=== PATIENT | male | born 1955 | race Caucasian/White ===

== ENCOUNTER 2017-08-04 16:22 | Observation (INO) | payer OTHER ==
[2017-08-04] MEDS ORDERED: Albuterol/Ipratropium NEB.SOL* Albuterol 2.5 MG/Ipratropium 0.5 MG 3 ML ONE (16:28)
[2017-08-04] MEDS ORDERED: Albuterol/Ipratropium NEB.SOL* Albuterol 2.5 MG/Ipratropium 0.5 MG 3 ML INH ONE (16:28)
[2017-08-04] MEDS ORDERED: methylPREDNISolone 125 MG* 2 ML VIAL IV ONE (16:34)
[2017-08-04] MEDS ORDERED: Azithromycin IV(*) 500 MG in NS 0.9% 250 ML* 250 ML IVPB ONE (16:34)
[2017-08-04] MEDS ORDERED: cefTRIAXone(*) 1 GM in NS 0.9% 50 ML* 50 ML IVPB ONE (16:34)
--- NOTE | 2017-08-04 16:59 | RAD ---
INDICATION: Short of breath COMPARISON: Chest x-ray March 06, 2004 TECHNIQUE: An AP portable view obtained at 1638 hours is submitted. FINDINGS: Bones/Soft Tissues: There are no acute bony findings. Cardiomediastinal: The cardiomediastinal silhouette is normal. Lungs: There are no infiltrates. Pleura: There are no pleural effusions. Other: None IMPRESSION: NO ACTIVE DISEASE.
[2017-08-04 17:06] LABS: Hematocrit 46 % (42-52); Hemoglobin 16.1 g/dl (14.0-18.0); Mean Corpuscular HGB Conc 35 g/dl (31-36); Mean Corpuscular Hemoglobin 35 pg (27-31); Mean Corpuscular Volume 101 fL (80-94); Mean Platelet Volume 8 um3 (7.4-10.4); Red Blood Count 4.58 10^6/ul (4.0-5.4); Red Cell Distribution Width 14 % (10.5-15)
[2017-08-04 17:24] LABS: Albumin 4.4 g/dL (3.2-5.2); BUN/Creatinine Ratio 7.2 (8-20); C Reactive Protein 12.81 mg/L (< 5.00); Calcium 9.4 mg/dL (8.6-10.3); EGFR African American 149.9 (>60); EGFR Non-African American 116.6 (>60); Globulin 3.2 g/dL (2-4); Magnesium 2.1 mg/dL (1.9-2.7); Total Bilirubin 0.3 mg/dL (0.2-1.0); Total Protein 7.6 g/dL (6.4-8.9)
[2017-08-04 17:37] LABS: Venous Bicarbonate HCO3 20.7 mmol/L (24-28)
--- NOTE | 2017-08-04 18:50 | ED ---
Ben [place] Benjamin, scribed for Jaylan Payne MD on 08/04/17 at 1635 . Shortness of Breath - HPI Summary HPI Summary: 62yo male c/o SOB for 4-5 days. Pt also reports fever/chills, productive cough, and difficulty eating and sleeping due to SOB. Pt also has baseline wheezes. Multiple ortho surgical hx in both legs and states frequent hx of sinus infections. - History of Current Complaint Chief Complaint: EDShortnessOfBreath Time Seen by Provider: 08/04/17 16:26 Hx Obtained From: Patient Onset/Duration: Sudden Onset, Lasting Days - 4-5 days ago, Still Present Timing: Constant Current Severity: Moderate Dyspnea At: Rest Aggrevating Factors: Nothing Alleviating Factors: EMS Tx, Oxygen Associated Signs & Symptoms: Cough (Productive), Wheezing, Fever, Chills - Allergy/Home Medications Allergies/Adverse Reactions: Allergies Allergy/AdvReac Type Severity Reaction Status Date / Time Black [place] trees* Allergy Severe Swelling Uncoded 08/08/12 10:17 PMH/Surg Hx/FS Hx/Imm Hx Endocrine/Hematology History: Denies: Hx Diabetes, Hx Thyroid Disease Cardiovascular History: Denies: Hx Hypertension Respiratory History: Denies: Hx Asthma, Hx Chronic Obstructive Pulmonary Disease (COPD) GI History: Denies: Hx Ulcer - Surgical History Surgery Procedure, Year, and Place: Multiple leg surgeries Infectious Disease History: Denies: Hx Hepatitis, Hx Human Immunodeficiency Virus (HIV) - Family History Known Family History: Positive: Cardiac Disease, Hypertension - Social History Occupation: Retired Substance Use Type: Reports: None Review of Systems Positive: Fever, Chills Eyes: Negative ENT: Negative Cardiovascular: Negative Positive: Shortness Of Breath, Cough Gastrointestinal: Negative Genitourinary: Negative Musculoskeletal: Negative Skin: Negative Neurological: Negative Psychological: Normal All Other Systems Reviewed And Are Negative: Yes Physical Exam Triage Information Reviewed: Yes Vital Signs On Initial Exam: Initial Vitals Temp Pulse Resp BP Pulse Ox 98.2 F 109 16 115/76 99 08/04/17 16:24 08/04/17 16:24 08/04/17 16:24 08/04/17 16:24 08/04/17 16:24 Vital Signs Reviewed: Yes Appearance: Positive: Well-Appearing, Well-Nourished, Pain Distress - moderate respiratory distress Skin: Positive: Warm, Skin Color Reflects Adequate Perfusion, Dry Head/Face: Positive: Normal Head/Face Inspection Eyes: Positive: Normal ENT: Positive: Normal ENT inspection, Hearing grossly normal Neck: Positive: Supple, Nontender Respiratory/Lung Sounds: Positive: Decreased Breath Sounds, Wheezes - bilateral wheezes Cardiovascular: Positive: RRR, Pulses are Symmetrical in both Upper and Lower Extremities Abdomen Description: Positive: Nontender, Soft Bowel Sounds: Positive: Present Musculoskeletal: Positive: Strength/ROM Intact. Negative: Edema Left, Edema Right Neurological: Positive: Sensory/Motor Intact, Alert, Oriented to Person Place, Time Psychiatric: Positive: Affect/Mood Appropriate Diagnostics - Vital Signs Vital Signs Temp Pulse Resp BP Pulse Ox 08/04/17 18:00 117 19 120/70 94 08/04/17 17:45 118 14 108/41 93 08/04/17 17:30 120 23 92/77 93 08/04/17 17:15 116 15 99/56 94 08/04/17 17:00 120 21 100/66 94 08/04/17 16:38 114 20 97 08/04/17 16:35 127/74 08/04/17 16:30 112 17 100 08/04/17 16:24 98.2 F 109 16 115/76 99 - Laboratory Lab Results: Lab Results 08/04/17 08/04/17 08/04/17 Range/Units 16:52 16:52 16:52 WBC 5.0 (3.5-10.8) 10^3/ul RBC 4.58 (4.0-5.4) 10^6/ul Hgb 16.1 (14.0-18.0) g/dl Hct 46 (42-52) % MCV 101 H (80-94) fL MCH 35 H (27-31) pg MCHC 35 (31-36) g/dl RDW 14 (10.5-15) % Plt Count 211 (150-450) 10^3/ul MPV 8 (7.4-10.4) um3 Neut % (Auto) 42.3 (38-83) % Lymph % (Auto) 39.9 (25-47) % [place] % (Auto) 16.2 H (1-9) % Eos % (Auto) 0.5 (0-6) % Baso % (Auto) 1.1 (0-2) % Absolute Neuts (auto) 2.1 (1.5-7.7) 10^3/ul Absolute Lymphs (auto) 2.0 (1.0-4.8) 10^3/ul Absolute Monos (auto) 0.8 (0-0.8) 10^3/ul Absolute Eos (auto) 0 (0-0.6) 10^3/ul Absolute Basos (auto) 0.1 (0-0.2) 10^3/ul Absolute Nucleated RBC 0 10^3/ul Nucleated RBC % 0 INR (Anticoag Therapy) (0.89-1.11) D-Dimer, Quantitative (Less Than 230) ng/mL VBG pH (7.33-7.43) VBG pCO2 (41-51) mmHg VBG pO2 (35-45) mmHg VBG HCO3 (24-28) mmol/L VBG O2 Saturation (70-80) % VBG Base Excess (0-4) Sodium 131 L (133-145) mmol/L Potassium 3.0 L (3.5-5.0) mmol/L Chloride 94 L (101-111) mmol/L Carbon Dioxide 21 L (22-32) mmol/L Anion Gap 16 H (2-11) mmol/L BUN 5 L (6-24) mg/dL Creatinine 0.69 (0.67-1.17) mg/dL Est GFR ( Amer) 149.9 (>60) Est GFR (Non-Af Amer) 116.6 (>60) BUN/Creatinine Ratio 7.2 L (8-20) Glucose 115 H (70-100) mg/dL Lactic Acid 8.1 H* (0.5-2.0) mmol/L Calcium 9.4 (8.6-10.3) mg/dL Magnesium 2.1 (1.9-2.7) mg/dL Total Bilirubin 0.30 (0.2-1.0) mg/dL AST 41 H (13-39) U/L ALT 21 (7-52) U/L Alkaline Phosphatase 62 (34-104) U/L Total Creatine Kinase 70 (10-223) U/L CK-MB (CK-2) 3.8 (0.6-6.3) ng/mL Troponin I 0.00 (<0.04) ng/mL C-Reactive Protein 12.81 H (< 5.00) mg/L B-Natriuretic Peptide ( - 100) pg/mL Total Protein 7.6 (6.4-8.9) g/dL Albumin 4.4 (3.2-5.2) g/dL Globulin 3.2 (2-4) g/dL Albumin/Globulin Ratio 1.4 (1-3) 08/04/17 08/04/17 08/04/17 Range/Units 16:52 16:52 17:30 WBC (3.5-10.8) 10^3/ul RBC (4.0-5.4) 10^6/ul Hgb (14.0-18.0) g/dl Hct (42-52) % MCV (80-94) fL MCH (27-31) pg MCHC (31-36) g/dl RDW (10.5-15) % Plt Count (150-450) 10^3/ul MPV (7.4-10.4) um3 Neut % (Auto) (38-83) % Lymph % (Auto) (25-47) % [place] % (Auto) (1-9) % Eos % (Auto) (0-6) % Baso % (Auto) (0-2) % Absolute Neuts (auto) (1.5-7.7) 10^3/ul Absolute Lymphs (auto) (1.0-4.8) 10^3/ul Absolute Monos (auto) (0-0.8) 10^3/ul Absolute Eos (auto) (0-0.6) 10^3/ul Absolute Basos (auto) (0-0.2) 10^3/ul Absolute Nucleated RBC 10^3/ul Nucleated RBC % INR (Anticoag Therapy) 0.88 L (0.89-1.11) D-Dimer, Quantitative < 200 (Less Than 230) ng/mL VBG pH 7.39 (7.33-7.43) VBG pCO2 31 L (41-51) mmHg VBG pO2 49 H (35-45) mmHg VBG HCO3 20.7 L (24-28) mmol/L VBG O2 Saturation 88.4 H (70-80) % VBG Base Excess -4.9 L (0-4) Sodium (133-145) mmol/L Potassium (3.5-5.0) mmol/L Chloride (101-111) mmol/L Carbon Dioxide (22-32) mmol/L Anion Gap (2-11) mmol/L BUN (6-24) mg/dL Creatinine (0.67-1.17) mg/dL Est GFR ( Amer) (>60) Est GFR (Non-Af Amer) (>60) BUN/Creatinine Ratio (8-20) Glucose (70-100) mg/dL Lactic Acid (0.5-2.0) mmol/L Calcium (8.6-10.3) mg/dL Magnesium (1.9-2.7) mg/dL Total Bilirubin (0.2-1.0) mg/dL AST (13-39) U/L ALT (7-52) U/L Alkaline Phosphatase (34-104) U/L Total Creatine Kinase (10-223) U/L CK-MB (CK-2) (0.6-6.3) ng/mL Troponin I (<0.04) ng/mL C-Reactive Protein (< 5.00) mg/L B-Natriuretic Peptide 29 ( - 100) pg/mL Total Protein (6.4-8.9) g/dL Albumin (3.2-5.2) g/dL Globulin (2-4) g/dL Albumin/Globulin Ratio (1-3) Result Diagrams: 08/04/17 16:52 08/04/17 16:52 Lab Statement: Any lab studies that have been ordered have been reviewed, and results considered in the medical decision making process. - Radiology CXR Xray Interpretation: No Acute Changes Radiology Interpretation Completed By: Radiologist - ED physician has reviewed this radiology report and agrees. - EKG 1634. Cardiac Rate: Tachycardia - 112bpm EKG Rhythm: Sinus Tachycardia Ectopy: None EKG Interpretation: Flat ST in V1 and V2 Course/Dx - Course Course Of Treatment: Reviewed pts medication and allergy lists. Blood pressure noted. Consulted Dr. Linda (Hospitalist) at 1826 hour regarding pt's case. ADMIT HOSPITALIST. CRITICAL CARE TIME LESS THAN 30 MINUTES. - Diagnoses Provider Diagnoses: COPD (chronic obstructive pulmonary disease) Discharge - Discharge Plan Condition: Stable Disposition: ADMITTED TO [facility] Referrals: Jose Mack MD [Primary Care Provider] - The documentation as recorded by the Ben bangura Benjamin accurately reflects the service I personally performed and the decisions made by me, Jaylan Payne MD.
[2017-08-04] MEDS ORDERED: Albuterol/Ipratropium NEB.SOL* Albuterol 2.5 MG/Ipratropium 0.5 MG 3 ML INH PRN (20:10)
[2017-08-04] MEDS ORDERED: Acetaminophen TAB* 325 MG PO PRN (20:11)
[2017-08-04] MEDS ORDERED: PROCHLORPERAZINE INJ 5 MG/ML 2 ML VIAL IV PRN (20:11)
[2017-08-04] MEDS ORDERED: Thiamine IV 100 MG, Folic Acid IV* 1 MG, Multiple Vitamin IV ADULT* 10 ML in NS 0.9% 10... IV ONE ×2 (20:13→23:45)
[2017-08-04] MEDS ORDERED: Nicotine Inhaler* 10 MG AMP INH PRN (20:17)
[2017-08-04] MEDS ORDERED: Nicotine GUM* 2 MG PO PRN (20:17)
[2017-08-04] MEDS ORDERED: LORazepam TAB(*) 1 MG PO SCH (21:00)
[2017-08-04] MEDS: KCL 10 MEQ/50 ML IVPREMIX* 10 MEQ/50 ML BAG IV SCH ×2 (22:27→23:44)
[2017-08-04] MEDS: Omeprazole CAP* 20 MG PO SCH (22:28)
[2017-08-04] MEDS: Heparin VIAL(*) 5000 UNITS/ML VIAL (FIVE THOUSAND) SUBCUT SCH (22:28)
--- NOTE | 2017-08-05 00:28 | HP ---
CC: Layne Do NP at the [facility] MEDICINE HISTORY AND PHYSICAL: DATE OF ADMISSION: 08/04/17 PRIMARY CARE PHYSICIAN: Layne Do NP at the [place]. ATTENDING PHYSICIAN: Ibrahima Gordon MD* (dictation provided by Hyun Valdes NP). CHIEF COMPLAINT: Shortness of breath. HISTORY OF PRESENT ILLNESS: Mr. Turcios is a 62-year-old male with a past medical history of COPD and hypertension and continued smoking who presents to the hospital today with concern for severe shortness of breath. Mr. Turcios states that his shortness of breath started about a week ago. He said it was quite severe over the weekend. He reports significant cough. He continues to smoke about 1 to 2 packs of cigarettes per day. He states he was able to quit, but he started smoking again when his son about 4 months ago. He denies any chest pain. He has chronic persistent nausea and has a very difficult time tolerating oral intake. He states that he has had this problem since he was a child. He reports vomiting practically anytime he eats something. He was supposed to be scheduled for an endoscopy both upper and lower, but he cancelled it because he was not feeling well and he did not have any transportation. He does confirm drinking on a daily basis and states that he drinks vodka with grapefruit juice throughout the entire day. He denies any history of alcohol withdrawal seizures. On the way to the emergency room, Mr. Turcios was described to be quite short of breath. He was given Decadron and albuterol on arrival here. He was tripoding and very short of breath and was given Solu-Medrol with good effect as well as DuoNeb nebulizer. His labs showed no leukocytosis. He had a lactic acidosis to 8.1. His CRP is 12.81. His EKG shows no evidence of ischemia. His chest x- ray shows no evidence of acute cardiopulmonary process. PAST MEDICAL HISTORY: 1. COPD. 2. Hypertension, not on home meds. MEDICATIONS: None. ALLERGIES: BLACK [place] TREES. FAMILY HISTORY: The patient reports his mom related to cancer. Dad as a result of diabetes. SOCIAL HISTORY: The patient is a continued 1 to 2 pack a day smoker. He drinks alcohol all day, every day. He denies any drug use. He lives with his daughter-in- law and son. His son will be the healthcare proxy. REVIEW OF SYSTEMS: A 14-point review of systems was completed with Mr. Turcios and all those not mentioned above were negative. PHYSICAL EXAMINATION GENERAL: Mr. Glen Turcios is sitting up in the bed. He is in no acute distress. VITAL SIGNS: Temperature 98.2, heart rate 99, respiratory rate 19, O2 saturation 95% on room air, and blood pressure 126/72. LUNGS: The patient is diminished bilaterally with wheezing noted anytime he coughs. There is no accessory muscle use. The patient is able to speak in complete sentences. HEART: S1 and S2. No murmur, rub, or gallop and regular. ABDOMEN: Soft, nontender with bowel sounds positive x4. EXTREMITIES: No cyanosis or edema. NEUROLOGIC: He is alert, he is oriented x3. He moves all extremities equally. There is no facial asymmetry or focal weakness. Extraocular movements are intact. SKIN: Intact. LABORATORY DATA/DIAGNOSTIC STUDIES: Sodium 131, potassium 3.0, chloride 94, serum bicarbonate 21, BUN 5, creatinine 0.69, glucose 115. Lactic acid 8.1 on arrival, on followup it was 5.6. CRP 12.81. WBC 5.0, hemoglobin 16.1, hematocrit 46, platelet count 211,000. INR 0.88. D-dimer less than 200. Venous blood gas shows pH of 7.39, pCO2 of 31, pO2 of 49, bicarbonate 20.7. EKG shows sinus tachycardia with the heart rate about 112. No evidence of ischemia. Chest x-ray shows no acute cardiopulmonary process. ASSESSMENT AND PLAN: Mr. Turcios is a 62-year-old male with a past medical history of chronic obstructive pulmonary disease and continued smoking, as well as hypertension not on any medications and alcoholism, who presents today to the hospital with concern for shortness of breath. Our plans are for inpatient admission as I expect the length of stay to be greater than 2 days for the followin. Chronic obstructive pulmonary disease exacerbation: The patient has no evidence of pulmonary embolism as his D-dimer is negative. He has normal troponin. I suspect that his symptoms all stem from chronic obstructive pulmonary disease and persistent smoking. He has improved dramatically with Solu-Medrol and Decadron. Plan to continue with prednisone and azithromycin orally. I would like to switch to oral at this point, as the patient has indicated that he has trouble tolerating oral intake and meds, and I want to see that he is able to tolerate those 2 medications before he is discharged. He will have oxygen available and DuoNeb nebulizers prn. I have also added Advair. 2. Alcoholism: The patient will be on [facility] protocol with multivitamin, folate, thiamine and Ativan p.r.n. 3. Hypertension. The patient states he has a history of hypertension, but states that he discontinued medication, his blood pressure is running 100 to 120 systolically. We can add medications as clinically indicated. 4. Lactic acidosis: I suspect this is due to his severe shortness of breath. I see no evidence of infection or sepsis. 5. Code status is full code. 6. Nausea and vomiting: The patient states this is a chronic issue. We will have to assess if he is able to tolerate medications. His PCP had arranged for him to followup outpatient for endoscopy and I recommend that he continue to do that. I have started omeprazole b.i.d. as I suspect a lot of his issue must be related to chronic alcoholism and gastritis. TIME SPENT: Approximately 60 minutes were spent on the admission of this patient, more than half the time spent with the patient at the bedside reviewing the events leading up to this hospitalization, performing the physical examination, and reviewing my plan of care. HYUN VALDES NP [id number]/[facility] #: [id number] DINA
[2017-08-05] MEDS ORDERED: Thiamine IV* 100 MG/ML 2 ML VIAL IM ONE (00:33)
[2017-08-05] MEDS: KCL 10 MEQ/50 ML IVPREMIX* 10 MEQ/50 ML BAG IV SCH (00:59)
[2017-08-05] MEDS: Mometasone/Formoter 100/5 MDI INH SCH ×2 (04:14→10:16)
[2017-08-05] MEDS: Heparin VIAL(*) 5000 UNITS/ML VIAL (FIVE THOUSAND) SUBCUT SCH (06:09)
[2017-08-05 07:13] LABS: Calcium 9.6 mg/dL (8.6-10.3); EGFR African American 155.1 (>60); EGFR Non-African American 120.6 (>60); Potassium 4.2 mmol/L (3.5-5.0)
[2017-08-05] MEDS ORDERED: Nicotine PATCH 21 MG/24 HR* PATCH TRANSDERM SCH (08:00)
[2017-08-05] MEDS ORDERED: Azithromycin TAB* 250 MG PO SCH (09:00)
[2017-08-05] MEDS ORDERED: Folic Acid TAB* 1 MG PO SCH (09:00)
[2017-08-05] MEDS ORDERED: Multivitamins/Minerals TAB PO SCH (09:00)
[2017-08-05] MEDS ORDERED: predniSONE TAB* 20 MG PO SCH (09:00)
[2017-08-05] MEDS ORDERED: Thiamine TAB* 100 MG TAB PO SCH (09:00)
[2017-08-05] MEDS: Omeprazole CAP* 20 MG PO SCH (09:01)
--- NOTE | 2017-08-05 09:41 | PN ---
Subjective Date of Service: 08/05/17 Interval History: Patient seen and examined at bedside. Patient states he feels much better. He states he only uses an albuterol inhaler at home. He states is wasnt working for him yesterday. He was a fused ankle and can only ambulate to the bathroom without his special shoe. He does not read or write. Family History: Unchanged from Admission Social History: Unchanged from Admission Past Medical History: Unchanged from Admission Objective Active Medications: Acetaminophen (Tylenol Tab*) 650 mg PO Q6H PRN Albuterol/Ipratropium (Duoneb (Albuterol 2.5 Mg/Ipratropium 0.5 Mg)) 1 neb INH Q4H PRN Azithromycin (Zithromax Tab*) 250 mg PO DAILY [facility] Folic Acid (Folvite Tab*) 1 mg PO DAILY [facility] Heparin Sodium (Porcine) (Heparin Vial(*)) 5,000 units SUBCUT Q8HR [facility] Lorazepam (Ativan Tab(*)) 0 - 6 mg PO .PER [facility] PROTOCOL [facility] Mometasone Furoate/Formoterol Fumar (Dulera 100/5 Mdi*) 1 puff INH BID [facility] Multivitamins/Minerals (Theragran/Minerals Tab*) 1 tab PO DAILY [facility] Nicotine (Nicotine Inhaler*) 10 mg INH Q2H PRN Nicotine (Nicotine Patch 21 Mg/24 Hr*) 1 patch TRANSDERM DAILY@0800 [facility] Nicotine Polacrilex (Nicotine Gum*) 2 mg PO Q2H PRN Omeprazole (Prilosec Cap*) 20 mg PO BID [facility] Prednisone (Deltasone Tab*) 60 mg PO DAILY [facility] Prochlorperazine Edisylate (Compazine Inj*) 5 mg IV Q6H PRN Thiamine HCl (Vitamin B-1 Tab*) 100 mg PO DAILY [facility] 08/05/17 08/05/17 04:00 04:39 Temperature 98.3 F Pulse Rate 90 Respiratory 22 22 Rate Blood Pressure 148/79 (mmHg) O2 Sat by Pulse 95 Oximetry Oxygen Devices in Use Now: Nasal Cannula Appearance: sitting up in bed, NAD Eyes: No Scleral Icterus, PERRLA Ears/Nose/Mouth/Throat: NL Teeth, Lips, Gums Neck: NL Appearance and Movements; NL JVP Respiratory: Symmetrical Chest Expansion and Respiratory Effort, - - decreased at bases; no wheezing heard Cardiovascular: NL Sounds; No Murmurs; No JVD, RRR Abdominal: NL Sounds; No Tenderness; No Distention Skin: No Rash or Ulcers Neurological: Alert and Oriented x 3, NL Muscle Strength and Tone Lines/Tubes/Other Access: Clean, Dry and Intact Peripheral IV Nutrition: Taking PO's Result Diagrams: 08/04/17 16:52 08/05/17 06:27 Assess/Plan/Problems-Billing Patient is a 62 y/o M w/ hx of EtOh abuse, HTN, COPD who continues to smoke who presented to the ER w/ worsening shortness of breath. - Patient Problems (1) COPD exacerbation Comment: Improving. Continue standing nebs, dulera, prednisone and zithromax. Try to wean oxygen. Will need spiriva and dulera at discharge. (2) HTN (hypertension) Comment: BP fairly well controlled without medications. Close PCP follow-up. (3) ETOH abuse Comment: Continue [facility] protocol. No S/S of active withdrawal. Continue folate, thiamine and MVI. (4) Tobacco abuse Comment: Counseled patient on impact of smoking on continued exacerbations. (5) DVT prophylaxis Comment: SQ Heparin (6) DNR (do not resuscitate) Status and Disposition: Inpatient for COPD exacerbation. Plan to discharge home when stable.
[2017-08-05] MEDS ORDERED: Albuterol 2.5 MG/3 ML NEB.SOL* (0.083%) INH PRN (10:11)
[2017-08-05 10:12] VITALS: BP 154/85
[2017-08-05] MEDS ORDERED: Albuterol/Ipratropium NEB.SOL* Albuterol 2.5 MG/Ipratropium 0.5 MG 3 ML INH SCH (11:00)
--- NOTE | 2017-08-06 02:08 | DS ---
CC: Layne Do NP* DISCHARGE SUMMARY: DATE OF ADMISSION: 08/03/17. DATE OF DISCHARGE: 08/05/17. PRIMARY CARE PHYSICIAN: Layne Do NP at [place]. ATTENDING PHYSICIAN: Dr. Wilmer Deleon* (report dictated by Lina Johns NP). PRIMARY DIAGNOSES: 1. Chronic obstructive pulmonary disease exacerbation. 2. Hypertension. STUDIES WHILE IN THE HOSPITAL: Chest x-ray 08/04/17, no active disease. MEDICATIONS AT THE TIME OF DISCHARGE: New medications: 1. Albuterol HFA. 2. Ventolin inhaler. 3. Zithromax 250 mg oral daily for 5 days. 4. Folic acid 1 tablet oral daily. 5. Dulera 100/5 one puff inhaled twice daily. 6. Multivitamin 1 tablet oral daily. 7. Spiriva 1 puff inhaled daily. 8. Thiamine 100 mg oral daily. 9. Spiriva 1 capsule inhaled daily. 10. Prednisone 10 mg tablets 4 tablets for 4 days, 3 tablets for 4 days, 2 tablets for 4 days, 1 tablet for 4 days and stop. 11. Nicotine patch 1 patch transdermal daily. 12. Omeprazole 20 mg twice a day. The patient was instructed to discontinue Benadryl. HISTORY OF PRESENT ILLNESS AND HOSPITAL COURSE: Mr. Turcios is a 62-year-old male with past medical history of COPD and hypertension who continues to smoke, and presented to the emergency room with one week history of shortness of breath. In the emergency room the patient was tripoding and given Solu-Medrol, as well as nebulizer. He was found to have a lactic acidosis of 8 and CRP of 12. The patient was admitted to the medical floor for further treatment. For his COPD, he was continued on oral steroids and Zithromax. The patient also had nebulizer treatments as needed. In the morning he was able to be weaned completely of oxygen. He was able to maintain his oxygen saturation above 95% on room air. The patient was also able to tolerate oral medications. The patient does have a history of alcoholism. He was placed on multivitamin, folate and thiamine, which will be continued at discharge. He did not score on the [facility] protocol during his admission. Blood pressure was relatively controlled , systolic was in the 140s, we will wait for him to be reassessed as outpatient , medications were not started during this admission. The patient did present with lactic acidosis, with lactic acid up to 8. There was no evidence of any infection or sepsis. Lactic acid normalized this morning with IV fluid. The patient also stated he had issues with nausea and vomiting, was started on omeprazole twice daily, and suspected this nausea and vomiting was due to gastritis secondary to alcoholism. The patient was able to take his oral medications and eat prior to discharge. Vitals were as follows: Temperature 97.5, heart rate 81, respiratory rate 17, blood pressure 154/85, oxygen saturation 98%. At this point the patient is stable for discharge. DISCHARGE PLANNING: The patient is being discharged on a regular diet. The patient has been instructed to use his Dulera and Spiriva regularly and use his albuterol as a rescue inhaler. The patient is instructed to follow up with Layne Do in 4 to 7 days. The patient has been instructed to return to the hospital, if he experiences any worsening shortness of breath or high fever. I have reviewed all the instructions with the patient, and he is agreeable with his discharge plan. This is a summarized report of a complex medical history and hospital stay. For more details, please see the entire medical record. TIME SPENT: Time for this discharge was 60 minutes, and 35 minutes were spent with the patient discussing medications, discharge plans and followup instructions. CONDITION ON DISCHARGE: Stable. Reviewed by LINA JOHNS NP 08/09/20171999 [id number]/[facility] #: [id number] DINA
== END 2017-08-05 13:00 | disposition home or self-care (01) ==
LOC: ED 16:22 → MEDTELE 20:19 → INTOOBSV 20:19 → MED 08-05 02:33 → OBSVTOIN 08-05 09:00 → INTOOBSV 08-05 09:00
PROVIDERS: ADMIT Hospitalist; ATTEND Hospitalist
DX: J44.1 Chronic obstructive pulmonary disease with (acute) exacerbation (principal); I10 Essential (primary) hypertension; Z79.899 Other long term (current) drug therapy; E87.2 Acidosis; F17.210 Nicotine dependence, cigarettes, uncomplicated; F10.20 Alcohol dependence, uncomplicated; R11.2 Nausea with vomiting, unspecified; R06.02 Shortness of breath; R00.0 Tachycardia, unspecified; R05 Cough
CPT/HCPCS: 36415; 71010; 80048; 80053; 82550; 82553; 82803; 83605; 83735; 83880; 84484; 85025; 85379; 85610; 86140; 87040; 93005; 94640; 96365; 96367; 96372; 96375; 99285; A9270-GY; G0378; J0456; J0696; J1644; J2930; J3411; J3480; J7512

== ENCOUNTER 2017-11-14 01:33 | Emergency (ER) | payer OTHER ==
[2017-11-14 04:33] LABS: ABS Basophils 0 10^3/ul (0-0.2); ABS Eosinophils 0 10^3/ul (0-0.6); ABS Lymphocytes 1.6 10^3/ul (1.0-4.8); ABS Monocytes 0.6 10^3/ul (0-0.8); ABS Neutrophils 4.9 10^3/ul (1.5-7.7); ABS Nucleated RBC 0 10^3/ul; Eosinophil % 0.4 % (0-6); Hematocrit 41 % (42-52); Hemoglobin 14.5 g/dl (14.0-18.0); Lymphocyte % 22.4 % (25-47); Mean Corpuscular HGB Conc 36 g/dl (31-36); Mean Corpuscular Hemoglobin 37 pg (27-31); Mean Corpuscular Volume 103 fL (80-94); Mean Platelet Volume 8 um3 (7.4-10.4); Nucleated Red Blood Cells % 0; Platelet Count 257 10^3/ul (150-450); Red Blood Count 3.94 10^6/ul (4.0-5.4); Red Cell Distribution Width 13 % (10.5-15); White Blood Count 7.2 10^3/ul (3.5-10.8)
[2017-11-14 04:43] LABS: Urine Appearance Clear; Urine Blood Negative (Negative); Urine Color Straw; Urine Ketones Negative (Negative); Urine Protein Negative (Negative); Urine Specific Gravity 1.003 (1.010-1.030); Urine Urobilinogen Negative (Negative)
[2017-11-14 04:46] LABS: EGFR Non-African American 142.4 (>60)
--- NOTE | 2017-11-14 08:13 | ED ---
Krish Milton Angela, scribed for Luis Boyd MD on 11/14/17 at 0549 . Psychiatric Complaint - HPI Summary HPI Summary: This pt is a 62 y/o male presenting to [facility] via police for a 9.41. Pt reports "someone said I had a gun and I was going to commit suicide." He states someone made a phone call to the police. He currently denies SI thoughts or plan and HI. Pt denies owing a gun. He denies drinking alcohol last night Pt denies any drugs. PMHx: HTN, COPD. Pt reports he has trouble swallowing and has not eaten in 5 days. He has an endoscopy coming up on 11/18/17. - History Of Current Complaint Chief Complaint: EDMentalHealth Hx Obtained From: Patient Onset/Duration: Resolved Timing: Days Severity Currently: None Aggravating Factor(s): Nothing Alleviating Factor(s): Nothing Associated Signs And Symptoms: Positive: Negative Has Suicidal: Denies: Thoughts, With A Plan Has Homicidal: Denies: Thoughts, With A Plan - Allergies/Home Medications Allergies/Adverse Reactions: Allergies Allergy/AdvReac Type Severity Reaction Status Date / Time MS Poison Michelle Extract/Poison Allergy Severe Hives/Diff. Verified 08/05/17 02:13 [place]... Breathing/I [From Poison Michelle/[place] Extract] tching gold Allergy Intermediate Rash Uncoded 08/05/17 02:16 PMH/Surg Hx/FS Hx/Imm Hx Endocrine/Hematology History: Denies: Hx Diabetes, Hx Thyroid Disease Cardiovascular History: Reports: Hx Hypertension Respiratory History: Reports: Hx Chronic Obstructive Pulmonary Disease (COPD) Denies: Hx Asthma GI History: Denies: Hx Ulcer Sensory History: Reports: Hx Contacts or Glasses - Glasses for seeing numbers on phone left at home Denies: Hx Hearing Aid Opthamlomology History: Reports: Hx Contacts or Glasses - Glasses for seeing numbers on phone left at home - Surgical History Surgery Procedure, Year, and Place: Multiple leg surgeries Infectious Disease History: No Infectious Disease History: Denies: Hx Hepatitis, Hx Human Immunodeficiency Virus (HIV), Traveled Outside the [place] in Last 30 Days - Family History Known Family History: Positive: Cardiac Disease, Hypertension - Social History Alcohol Use: Daily Alcohol Amount: States drinks 3-4 beers and a "couple" of mixed drinks Substance Use Type: Reports: None Smoking Status (MU): Heavy Every Day Tobacco Smoker Type: Cigarettes Have You Smoked in the Last Year: Yes Review of Systems Negative: Fever, Chills Eyes: Negative ENT: Other - trouble swallowing Cardiovascular: Negative Respiratory: Negative Gastrointestinal: Negative Genitourinary: Negative Negative: Other - SI thoughts or plan. HI. All Other Systems Reviewed And Are Negative: Yes Physical Exam - Summary Physical Exam Summary: Appearance: Well-appearing, Well-nourished Skin: Warm Eyes: Normal ENT: Normal Neck: Supple, nontender Respiratory: Clear to auscultation Cardiovascular: Normal S1, S2. No murmurs. Normal distal pulses. Abdomen: Soft, nontender Musculoskeletal: Normal, Strength/ROM Intact Neurological: Normal, A&Ox3 Psychiatric: Normal Triage Information Reviewed: Yes Vital Signs On Initial Exam: Initial Vitals Temp Pulse Resp BP Pulse Ox 97.2 F 106 28 153/84 100 11/14/17 01:34 11/14/17 01:34 11/14/17 01:34 11/14/17 01:34 11/14/17 01:34 Vital Signs Reviewed: Yes Diagnostics - Vital Signs Vital Signs Temp Pulse Resp BP Pulse Ox 11/14/17 01:34 97.2 F 106 28 153/84 100 - Laboratory Lab Results: Lab Results 11/14/17 11/14/17 11/14/17 Range/Units 04:20 04:20 04:25 WBC 7.2 (3.5-10.8) 10^3/ul RBC 3.94 L (4.0-5.4) 10^6/ul Hgb 14.5 (14.0-18.0) g/dl Hct 41 L (42-52) % MCV 103 H (80-94) fL MCH 37 H (27-31) pg MCHC 36 (31-36) g/dl RDW 13 (10.5-15) % Plt Count 257 (150-450) 10^3/ul MPV 8 (7.4-10.4) um3 Neut % (Auto) 68.1 (38-83) % Lymph % (Auto) 22.4 L (25-47) % [place] % (Auto) 8.5 (1-9) % Eos % (Auto) 0.4 (0-6) % Baso % (Auto) 0.6 (0-2) % Absolute Neuts (auto) 4.9 (1.5-7.7) 10^3/ul Absolute Lymphs (auto) 1.6 (1.0-4.8) 10^3/ul Absolute Monos (auto) 0.6 (0-0.8) 10^3/ul Absolute Eos (auto) 0 (0-0.6) 10^3/ul Absolute Basos (auto) 0 (0-0.2) 10^3/ul Absolute Nucleated RBC 0 10^3/ul Nucleated RBC % 0 Sodium 136 (133-145) mmol/L Potassium 3.6 (3.5-5.0) mmol/L Chloride 103 (101-111) mmol/L Carbon Dioxide 24 (22-32) mmol/L Anion Gap 9 (2-11) mmol/L BUN 7 (6-24) mg/dL Creatinine 0.58 L (0.67-1.17) mg/dL Est GFR ( Amer) 183.2 (>60) Est GFR (Non-Af Amer) 142.4 (>60) BUN/Creatinine Ratio 12.1 (8-20) Glucose 97 (70-100) mg/dL Calcium 8.5 L (8.6-10.3) mg/dL Total Bilirubin 0.30 (0.2-1.0) mg/dL AST 21 (13-39) U/L ALT 10 (7-52) U/L Alkaline Phosphatase 88 (34-104) U/L Total Protein 6.4 (6.4-8.9) g/dL Albumin 3.8 (3.2-5.2) g/dL Globulin 2.6 (2-4) g/dL Albumin/Globulin Ratio 1.5 (1-3) TSH 0.93 (0.34-5.60) mcIU/mL Urine Color Urine Appearance Urine pH (5-9) Ur Specific [place] (1.010-1.030) Urine Protein (Negative) Urine Ketones (Negative) Urine Blood (Negative) Urine Nitrate (Negative) Urine Bilirubin (Negative) Urine Urobilinogen (Negative) Ur Leukocyte Esterase (Negative) Urine Glucose (Negative) Salicylates < 2.50 (<30) mg/dL Urine Opiates Screen None detected (None Detect) Acetaminophen < 15 mcg/mL Ur Barbiturates Screen None detected (None Detect) Ur Phencyclidine Scrn None detected (None Detect) Ur Amphetamines Screen None detected (None Detect) U Benzodiazepines Scrn None detected (None Detect) Urine Cocaine Screen None detected (None Detect) U Cannabinoids Screen None detected (None Detect) Serum Alcohol 88 H (<10) mg/dL 11/14/17 Range/Units 04:25 WBC (3.5-10.8) 10^3/ul RBC (4.0-5.4) 10^6/ul Hgb (14.0-18.0) g/dl Hct (42-52) % MCV (80-94) fL MCH (27-31) pg MCHC (31-36) g/dl RDW (10.5-15) % Plt Count (150-450) 10^3/ul MPV (7.4-10.4) um3 Neut % (Auto) (38-83) % Lymph % (Auto) (25-47) % [place] % (Auto) (1-9) % Eos % (Auto) (0-6) % Baso % (Auto) (0-2) % Absolute Neuts (auto) (1.5-7.7) 10^3/ul Absolute Lymphs (auto) (1.0-4.8) 10^3/ul Absolute Monos (auto) (0-0.8) 10^3/ul Absolute Eos (auto) (0-0.6) 10^3/ul Absolute Basos (auto) (0-0.2) 10^3/ul Absolute Nucleated RBC 10^3/ul Nucleated RBC % Sodium (133-145) mmol/L Potassium (3.5-5.0) mmol/L Chloride (101-111) mmol/L Carbon Dioxide (22-32) mmol/L Anion Gap (2-11) mmol/L BUN (6-24) mg/dL Creatinine (0.67-1.17) mg/dL Est GFR ( Amer) (>60) Est GFR (Non-Af Amer) (>60) BUN/Creatinine Ratio (8-20) Glucose (70-100) mg/dL Calcium (8.6-10.3) mg/dL Total Bilirubin (0.2-1.0) mg/dL AST (13-39) U/L ALT (7-52) U/L Alkaline Phosphatase (34-104) U/L Total Protein (6.4-8.9) g/dL Albumin (3.2-5.2) g/dL Globulin (2-4) g/dL Albumin/Globulin Ratio (1-3) TSH (0.34-5.60) mcIU/mL Urine Color Straw Urine Appearance Clear Urine pH 6.0 (5-9) Ur Specific [place] 1.003 L (1.010-1.030) Urine Protein Negative (Negative) Urine Ketones Negative (Negative) Urine Blood Negative (Negative) Urine Nitrate Negative (Negative) Urine Bilirubin Negative (Negative) Urine Urobilinogen Negative (Negative) Ur Leukocyte Esterase Negative (Negative) Urine Glucose Negative (Negative) Salicylates (<30) mg/dL Urine Opiates Screen (None Detect) Acetaminophen mcg/mL Ur Barbiturates Screen (None Detect) Ur Phencyclidine Scrn (None Detect) Ur Amphetamines Screen (None Detect) U Benzodiazepines Scrn (None Detect) Urine Cocaine Screen (None Detect) U Cannabinoids Screen (None Detect) Serum Alcohol (<10) mg/dL Result Diagrams: 11/14/17 04:20 11/14/17 04:20 Lab Statement: Any lab studies that have been ordered have been reviewed, and results considered in the medical decision making process. Course/Dx - Course Assessment/Plan: Pt was medically cleared at 05:46. He is waiting for [facility]HE. Pt will be signed out to the next ED attending, pending dispo, awaiting [facility]. - Differential Dx/Clinical Impression Provider Diagnosis: Suicidal ideation Discharge - Discharge Plan Condition: Stable Disposition: OTHER Discharge Disposition Comment: signed out to the next ED attending, pending dispo, awaiting [facility]. Referrals: Jose Mack MD [Primary Care Provider] - The documentation as recorded by the Krish bangura Angela accurately reflects the service I personally performed and the decisions made by me, Luis Boyd MD.
[2017-11-14] MEDS ORDERED: Thiamine IV* 100 MG, Folic Acid IV* 1 MG, Multiple Vitamin IV ADULT* 10 ML in NS 0.9% 1... IV ONE (10:10)
[2017-11-14] MEDS ORDERED: LORazepam INJ* 2 MG/ML 1 ML VIAL IV PUSH ONE (10:10)
--- NOTE | 2017-11-14 10:29 | PN ---
ED Flex Patient Progress Note Subjective: This is a 62 year-old M who is pending psychiatric evaluation secondary to _SI w/ possible attempt last night - son reports he was holding a loaded gun to his chin while kneeling on the kitchen floor (per notes) . He was found to have ETOH on board at time of admission earlier this morning. Admits he's sweaty and is observed to be shaking w/ tremor at rest - he reports shaking is normal for him, there is some fam hx of Parkinsons - he has not been dx'd but can't say for sure he doesn't have it. He denies previous withdrawal sx and currently denies nausea, visual or auditory hallucinations, tactile sensations. He has not been able to eat d/t throat pain - has endoscopy scheduled soon - there is concerned he may have cancer. Objective: Vitals: Most recent vital signs documented below. General NAD, Alert and oriented x3. Heart: S1/S2, RRR Lungs: CTA, BREATHING EASILY Assessment: 1) Suicide attempt 2) ETOH dependence? Plan: 1) Pending psychiatric eval. Will follow up daily _while in ED____. 2) His ETOH was under 100 upon ED evaluation. CIWA protocol indicates score of 3 points at this time - discussed w/ charge nurse Kory who will keep a close eye on patient. He is currently declining ativan however this has been ordered as soon as he may want it to prevent further advancement of withdrawal sx. Also ordered banana bag as he is quite dry in oral mucosa - suspect this is from lack of oral intake of healthy foods/beverages in addition to dehydration from ETOH. Explained the risks of advaning withdrawal sx including seizure - pt voices understanding. Vital Signs Temp Pulse Resp BP Pulse Ox 97.2 F 86 28 150/75 98 11/14/17 01:34 11/14/17 09:30 11/14/17 01:34 11/14/17 09:30 11/14/17 09:30 Lab Results - Entire Visit 11/14/17 11/14/17 11/14/17 04:25 04:25 04:20 WBC 7.2 RBC 3.94 L Hgb 14.5 Hct 41 L MCV 103 H MCH 37 H MCHC 36 RDW 13 Plt Count 257 MPV 8 Neut % (Auto) 68.1 Lymph % (Auto) 22.4 L [place] % (Auto) 8.5 Eos % (Auto) 0.4 Baso % (Auto) 0.6 Absolute Neuts (auto) 4.9 Absolute Lymphs (auto) 1.6 Absolute Monos (auto) 0.6 Absolute Eos (auto) 0 Absolute Basos (auto) 0 Absolute Nucleated RBC 0 Nucleated RBC % 0 Sodium Potassium Chloride Carbon Dioxide Anion Gap BUN Creatinine Est GFR ( Amer) Est GFR (Non-Af Amer) BUN/Creatinine Ratio Glucose Calcium Total Bilirubin AST ALT Alkaline Phosphatase Total Protein Albumin Globulin Albumin/Globulin Ratio TSH Urine Color Straw Urine Appearance Clear Urine pH 6.0 Ur Specific [place] 1.003 L Urine Protein Negative Urine Ketones Negative Urine Blood Negative Urine Nitrate Negative Urine Bilirubin Negative Urine Urobilinogen Negative Ur Leukocyte Esterase Negative Urine Glucose Negative Salicylates Urine Opiates Screen None detected Acetaminophen Ur Barbiturates Screen None detected Ur Phencyclidine Scrn None detected Ur Amphetamines Screen None detected U Benzodiazepines Scrn None detected Urine Cocaine Screen None detected U Cannabinoids Screen None detected Serum Alcohol 11/14/17 04:20 WBC RBC Hgb Hct MCV MCH MCHC RDW Plt Count MPV Neut % (Auto) Lymph % (Auto) [place] % (Auto) Eos % (Auto) Baso % (Auto) Absolute Neuts (auto) Absolute Lymphs (auto) Absolute Monos (auto) Absolute Eos (auto) Absolute Basos (auto) Absolute Nucleated RBC Nucleated RBC % Sodium 136 Potassium 3.6 Chloride 103 Carbon Dioxide 24 Anion Gap 9 BUN 7 Creatinine 0.58 L Est GFR ( Amer) 183.2 Est GFR (Non-Af Amer) 142.4 BUN/Creatinine Ratio 12.1 Glucose 97 Calcium 8.5 L Total Bilirubin 0.30 AST 21 ALT 10 Alkaline Phosphatase 88 Total Protein 6.4 Albumin 3.8 Globulin 2.6 Albumin/Globulin Ratio 1.5 TSH 0.93 Urine Color Urine Appearance Urine pH Ur Specific [place] Urine Protein Urine Ketones Urine Blood Urine Nitrate Urine Bilirubin Urine Urobilinogen Ur Leukocyte Esterase Urine Glucose Salicylates < 2.50 Urine Opiates Screen Acetaminophen < 15 Ur Barbiturates Screen Ur Phencyclidine Scrn Ur Amphetamines Screen U Benzodiazepines Scrn Urine Cocaine Screen U Cannabinoids Screen Serum Alcohol 88 H
--- NOTE | 2017-11-14 20:34 | ED ---
Progress - Progress Note Progress Note: I spoke with Dr[facility] P[place]al [place], accepted for transfer for further psychiatric care. I also spoke with oren Hu [facility]. - Consult/PCP Time Called: 01:34 Course/Dx - Course Course Of Treatment: I spoke with Dr. Panchal at [place], accepted for transfer for further psychiatric care. I also spoke with oren Hu [facility]. - Diagnoses Provider Diagnoses: Suicidal ideation
--- NOTE | 2017-11-14 22:24 | ED ---
Lucita Milton Nilda, scribed for Alfie Nguyen MD on 11/14/17 at 1906 . Progress - Progress Note Progress Note: This pt is s/o by Dr. Boyd, pending [facility]. The pt is hemodynamically stable, alert and oriented x3. Pt will be s/o pending shift change, still awaiting [facility]. - Consult/PCP Time Called: 01:34 Course/Dx - Course Course Of Treatment: This pt is s/o by Dr. Boyd, pending [facility]. The pt is hemodynamically stable, alert and oriented x3. Pt will be s/o pending shift change, still awaiting [facility]. - Diagnoses Provider Diagnoses: Suicidal ideation The documentation as recorded by the donyibLucita emery Nilda accurately reflects the service I personally performed and the decisions made by , Alfie Nguyen MD.
[2017-11-15 02:00] VITALS: BP 159/86
== END 2017-11-15 02:09 ==
LOC: ED 01:33
DX: R45.851 Suicidal ideations (principal); Z86.79 Personal history of other diseases of the circulatory system; Z87.09 Personal history of other diseases of the respiratory system; F17.210 Nicotine dependence, cigarettes, uncomplicated
CPT/HCPCS: 36415; 80053; 80307; 80320; 80329; 81003; 84443; 85025; 93005; 96365; 96375; 99285; G0480; J2060; J3411

== ENCOUNTER → 2018-02-25 14:06 | Emergency (ER) | payer OTHER ==
[2018-02-25 14:19] VITALS: BP 147/83
== END | disposition left against medical advice (07) ==
LOC: SUPCPDRO 14:06 → ED 14:06
DX: R07.89 Other chest pain (principal); Z53.21 Procedure and treatment not carried out due to patient leaving prior to being seen by health care provider
CPT/HCPCS: 93005; 99281

== ENCOUNTER 2018-05-11 17:52 | Emergency (ER) | payer OTHER ==
[2018-05-11] MEDS ORDERED: Dexamethasone IV* 4 MG/ML 1 ML (4 MG) IM ONE (18:16)
--- NOTE | 2018-05-11 18:28 | ED ---
Skin Complaint - HPI Summary HPI Summary: Complains of poison michelle dermatitis to bilateral face, chest, left arm starting yesterday. History of same multiple times. Patient works in [employer]. Patient states he just gets a steroid shot when he's been here before for same. Denies change in vision, fever, cough, sore throat, CP, SOB, N/V/D, abdominal pain, change in urinary BM. - History of Current Complaint Chief Complaint: EDRashSkinAbscess Time Seen by Provider: 05/11/18 18:03 Stated Complaint: RASH Hx Obtained From: Patient, Family/Elevator Runner Onset/Duration: Started Days Ago Timing: Constant Onset Severity: Mild Current Severity: Mild Pain Intensity: 0 Pain Scale Used: 0-10 Numeric Skin Location: Discrete, Face, Chest, Arm Aggravating Symptom(s): Nothing Alleviating Symptom(s): Nothing - Allergy/Home Medications Allergies/Adverse Reactions: Allergies Allergy/AdvReac Type Severity Reaction Status Date / Time MS Poison Michelle Extract/Poison Allergy Severe Hives/Diff. Verified 02/25/18 14:16 [place]... Breathing/I [From Poison Michelle/[place] Extract] tching gold Allergy Intermediate Rash Uncoded 02/25/18 14:16 PMH/Surg Hx/FS Hx/Imm Hx Endocrine/Hematology History: Denies: Hx Diabetes, Hx Thyroid Disease Cardiovascular History: Reports: Hx Hypertension Respiratory History: Reports: Hx Chronic Obstructive Pulmonary Disease (COPD) Denies: Hx Asthma GI History: Denies: Hx Ulcer Sensory History: Reports: Hx Contacts or Glasses - Glasses for seeing numbers on phone left at home Denies: Hx Hearing Aid Opthamlomology History: Reports: Hx Contacts or Glasses - Glasses for seeing numbers on phone left at home Psychiatric History: Denies: Hx Eating Disorder - Surgical History Surgery Procedure, Year, and Place: Multiple leg surgeries - Immunization History Immunizations Up to Date: Yes Infectious Disease History: No Infectious Disease History: Denies: Hx Hepatitis, Hx Human Immunodeficiency Virus (HIV), Traveled Outside the [place] in Last 30 Days - Family History Known Family History: Positive: Cardiac Disease, Hypertension - Social History Alcohol Use: Daily Alcohol Amount: States drinks 3-4 beers and a "couple" of mixed drinks Substance Use Type: Reports: None Smoking Status (MU): Heavy Every Day Tobacco Smoker Type: Cigarettes Have You Smoked in the Last Year: Yes Review of Systems Constitutional: Negative Eyes: Negative ENT: Negative Cardiovascular: Negative Respiratory: Negative Gastrointestinal: Negative Genitourinary: Negative Musculoskeletal: Negative Positive: Rash Neurological: Negative Psychological: Normal All Other Systems Reviewed And Are Negative: Yes Physical Exam - Summary Physical Exam Summary: Macular papular rash to bilateral cheeks, volar surface of left arm, mid chest. No vesicles. Blanchable. No oral involvement. Triage Information Reviewed: Yes Vital Signs On Initial Exam: Initial Vitals Temp Pulse Resp BP Pulse Ox 98.9 F 92 18 146/75 99 05/11/18 17:55 05/11/18 17:55 05/11/18 17:55 05/11/18 17:55 05/11/18 17:55 Vital Signs Reviewed: Yes Appearance: Positive: Well-Appearing Skin: Positive: Warm Head/Face: Positive: Normal Head/Face Inspection Eyes: Positive: Normal ENT: Positive: Normal ENT inspection Neck: Positive: Supple Respiratory/Lung Sounds: Positive: Clear to Auscultation Cardiovascular: Positive: Normal Abdomen Description: Positive: Nontender Musculoskeletal: Positive: Normal Neurological: Positive: Normal Psychiatric: Positive: Normal AVPU Assessment: Alert - [place] Coma Scale Best Eye Response: 4 - Spontaneous Best Motor Response: 6 - Obeys Commands Best Verbal Response: 5 - Oriented Coma Scale Total: 15 Diagnostics - Vital Signs Vital Signs Temp Pulse Resp BP Pulse Ox 05/11/18 17:55 98.9 F 92 18 146/75 99 - Laboratory Lab Statement: Any lab studies that have been ordered have been reviewed, and results considered in the medical decision making process. Course/Dx - Course Course Of Treatment: Complains of poison michelle dermatitis to bilateral face, chest , left arm starting yesterday. History of same multiple times. Patient works in [employer]. Patient states he just gets a steroid shot when he's been here before for same. Denies change in vision, fever, cough, sore throat, CP, SOB, N /V/D, abdominal pain, change in urinary BM. Macular papular rash to bilateral cheeks, volar surface of left arm, mid chest. No vesicles. Blanchable. No oral involvement. Decadron 10 MG IM here in the ED. Prednisone taper starting at 60 mg 4 days dec 10 mg every 4 days - Diagnoses Provider Diagnoses: Rash, Poison michelle dermatitis Discharge - Sign-Out/Discharge Documenting (check all that apply): Patient Departure - Discharge Plan Condition: Stable Disposition: HOME Prescriptions: predniSONE TAB* [Deltasone 10 MG TAB*] 10 mg PO DAILY 24 Days #84 tab Patient Education Materials: Poison Michelle (ED) Referrals: Layne Do [Primary Care Provider] - Additional Instructions: Take steroids as directed. Follow-up with primary care. - Billing Disposition and Condition Condition: STABLE Disposition: Home
[2018-05-11 18:56] VITALS: BP 138/78
== END 2018-05-11 18:35 | disposition home or self-care (01) ==
LOC: ED 17:52
DX: L23.7 Allergic contact dermatitis due to plants, except food (principal); F17.210 Nicotine dependence, cigarettes, uncomplicated
CPT/HCPCS: 96372; 99282; J1100

== ENCOUNTER 2020-05-02 12:08 | Observation (INO) ==
[2020-05-02] MEDS ORDERED: Morphine 4 MG/ML VIAL (1 ml) IV ONE (12:14)
[2020-05-02] MEDS ORDERED: Ondansetron 4 mg VIAL 2 MG/ML 2 ml VIAL IV ONE (12:14)
[2020-05-02] MEDS ORDERED: Nicotine PATCH 21 MG/24 HR PATCH TRANSDERM ONE (12:26)
[2020-05-02 12:41] LABS: ALT 30 U/L (7-52); Albumin 4.5 g/dL (3.2-5.2); Albumin/Globulin Ratio 1.6 (1-3); Alkaline Phosphatase 74 U/L (34-104); BUN/Creatinine Ratio 10.1 (8-20); Blood Urea Nitrogen 8 mg/dL (6-24); CO2 Carbon Dioxide 28 mmol/L (22-32); Chloride 99 mmol/L (101-111); EGFR African American 119.9 (>60); EGFR Non-African American 99.1 (>60); Globulin 2.9 g/dL (2-4); Glucose 93 mg/dL (70-100); Sodium 135 mmol/L (135-145); Total Protein 7.4 g/dL (6.4-8.9)
[2020-05-02 12:43] LABS: Anion Gap 8 mmol/L (2-11)
[2020-05-02 13:12] LABS: Hematocrit 45 % (42-52); Hemoglobin 15.7 g/dL (14.0-18.0); Mean Corpuscular HGB Conc 35 g/dL (31-36); Mean Corpuscular Hemoglobin 37 pg (27-31); Mean Corpuscular Volume 107 fL (80-94); Mean Platelet Volume 8.4 fL (7.4-10.4); Platelet Count 187 10^3/uL (150-450); Red Blood Count 4.24 10^6 /uL (4.18-5.48); Red Cell Distribution Width 14 % (10-15); White Blood Count 6.3 10^3/uL (3.5-10.8)
[2020-05-02 14:00] LABS: Magnesium 1.6 mg/dL (1.9-2.7)
[2020-05-02 14:03] LABS: ABS Eosinophils 0.1 10^3/ul (0-0.6); ABS Lymphocytes 1.4 10^3/ul (1.0-4.8); ABS Monocytes 0.8 10^3/ul (0-0.8); ABS Neutrophils 3.9 10^3/ul (1.5-7.7); Eosinophil % 1.6 %; Lymphocyte % 22.5 %
[2020-05-02] MEDS ORDERED: Magnesium Sulfate 2 gm BAG 2 GM/50 ML BAG IVPB ONE (15:09)
[2020-05-02] MEDS ORDERED: Albuterol 2.5mg/3 ml (0.083%) NEB.SOLN INH PRN (15:10)
[2020-05-02] MEDS ORDERED: Thiamine 100 MG/ML 2 ml VIAL (200 mg) IM ONE (15:29)
[2020-05-02] MEDS ORDERED: Polyethylene Glycol 3350 17 GM PACKET PO PRN (15:39)
[2020-05-02] MEDS: Enoxaparin 40 MG/0.4 ML SYR SUBCUT SCH (17:47)
[2020-05-02] MEDS: Multivitamins/Minerals TAB PO SCH (17:47)
[2020-05-02] MEDS: Morphine 2 MG/ML SYRINGE IV PRN ×2 (18:28→22:59)
[2020-05-02] MEDS: Nicotine PATCH 21 MG/24 HR PATCH TRANSDERM SCH (18:28)
[2020-05-02] MEDS: SPIRIVA Respimat (tiotropium) 2.5 mcg/inh Inhaler INH SCH (21:34)
[2020-05-02] MEDS: Mometasone/Formoter 100/5 MDI INH SCH (21:41)
[2020-05-02] MEDS ORDERED: Albuterol HFA INHALER 8 gm MDI INH PRN (21:56)
[2020-05-03] MEDS: Morphine 2 MG/ML SYRINGE IV PRN (02:57)
[2020-05-03 06:48] LABS: HDL Cholesterol 47.4 mg/dL
[2020-05-03] MEDS: SPIRIVA Respimat (tiotropium) 2.5 mcg/inh Inhaler INH SCH (07:26)
[2020-05-03] MEDS: Mometasone/Formoter 100/5 MDI INH SCH ×2 (07:26→19:19)
[2020-05-03] MEDS ORDERED: Aminophylline 25 MG/ML VIAL ONE (08:46)
[2020-05-03] MEDS ORDERED: Regadenoson 0.4 MG/5 ML SYRINGE ONE (08:46)
[2020-05-03] MEDS: Multivitamins/Minerals TAB PO SCH (10:12)
[2020-05-03] MEDS: Nicotine PATCH 21 MG/24 HR PATCH TRANSDERM SCH (10:13)
[2020-05-03] MEDS ORDERED: fentaNYL PATCH 50 MCG/HR 1 PATCH TRANSDERM SCH (15:00)
[2020-05-03] MEDS: Enoxaparin 40 MG/0.4 ML SYR SUBCUT SCH (16:31)
[2020-05-03] MEDS ORDERED: fentaNYL Patch Check Q Shift NOTE FOLLOW UP SCH (19:00)
[2020-05-03] MEDS: oxyCODONE SR 10 mg TAB PO SCH (21:08)
[2020-05-04] MEDS: Nicotine PATCH 21 MG/24 HR PATCH TRANSDERM SCH (07:32)
[2020-05-04] MEDS: Multivitamins/Minerals TAB PO SCH (07:32)
[2020-05-04] MEDS: oxyCODONE SR 10 mg TAB PO SCH (07:32)
[2020-05-04] MEDS: Mometasone/Formoter 100/5 MDI INH SCH (08:17)
[2020-05-04] MEDS: SPIRIVA Respimat (tiotropium) 2.5 mcg/inh Inhaler INH SCH (08:20)
[2020-05-04] MEDS ORDERED: oxyCODONE SR 10 mg TAB PO ONE (10:48)
[2020-05-04 11:16] VITALS: BP 149/74
== END 2020-05-04 12:30 | disposition home or self-care (01) ==
LOC: MEDTELE 12:08 → ED 12:08 → MEDTELE 17:29
PROVIDERS: ADMIT Internal Medicine; ATTEND Internal Medicine

== ENCOUNTER 2022-05-23 15:51 | Inpatient (IN) ==
[2022-05-23 16:37] LABS: ABS Basophils 0.1 10^3/ul (0-0.2); ABS Eosinophils 0.1 10^3/ul (0-0.6); ABS Lymphocytes 1.3 10^3/ul (1.0-4.8); ABS Monocytes 0.8 10^3/ul (0-0.8); ABS Neutrophils 4.9 10^3/ul (1.5-7.7); Hematocrit 49 % (42-52); Hemoglobin 17.1 g/dL (14.0-18.0); Lymphocyte % 18.6 %; Mean Corpuscular HGB Conc 35 g/dL (31-36); Mean Corpuscular Hemoglobin 39 pg (27-31); Mean Corpuscular Volume 114 fL (80-94); Mean Platelet Volume 7.3 fL (7.4-10.4); Platelet Count 180 10^3/uL (150-450); Red Blood Count 4.34 10^6 /uL (4.18-5.48); Red Cell Distribution Width 16 % (10-15); White Blood Count 7.2 10^3/uL (3.5-10.8)
[2022-05-23 17:15] LABS: Albumin 3.9 g/dL (3.2-5.2); Albumin/Globulin Ratio 1.6 (1-3); C Reactive Protein 4.73 mg/L (<8.01); Calcium 8.7 mg/dL (8.6-10.3); Globulin 2.5 g/dL (2-4); Potassium 3.6 mmol/L (3.5-5.0); Total Bilirubin 0.5 mg/dL (0.2-1.0); Total Protein 6.4 g/dL (6.4-8.9); eGFR CKD-EPI 105.1 (>60)
[2022-05-23] MEDS ORDERED: Iohexol 350 (CONTRAST) 500 ML MDV IV ONE ×2 (18:01→18:41)
[2022-05-23] MEDS ORDERED: Vancomycin 1,500 MG in NS 0.9% 250 ml 250 ML IVPB ONE (18:15)
[2022-05-23] MEDS ORDERED: cefTRIAXone 1 gm/50 mL D5W 1 GM/50 ML BAG IV ONE (18:15)
[2022-05-23] MEDS ORDERED: Morphine 4 MG/ML VIAL (1 ml) IV ONE (18:16)
[2022-05-23 18:39] LABS: Activated Partial Thrombo Time 31.4 seconds (26.0-38.0); INR 0.99 (0.89-1.11)
[2022-05-23] MEDS ORDERED: Nicotine PATCH 21 MG/24 HR PATCH TRANSDERM ONE (19:02)
[2022-05-23] MEDS ORDERED: NS 0.9% 1000 ml BAG 1,000 ML IV SCH (20:15)
[2022-05-23] MEDS ORDERED: NS 0.9% 1000 ml BAG 1,000 ML IV ONE (20:50)
[2022-05-23] MEDS ORDERED: Piperacillin/Tazobac ADVAN 3.375 GM in NS 0.9% 100 ml BAG 100 ML IV ONE (20:51)
[2022-05-23 21:00] LABS: Potassium 3.5 mmol/L (3.5-5.0)
[2022-05-23] MEDS ORDERED: Zosyn per Pharmacy NOTE FOLLOW UP SCH (21:00)
[2022-05-23] MEDS ORDERED: Fluticasone-Salmeterol 100-50 DISKUS NF INH SCH (21:00)
[2022-05-23 21:01] LABS: Albumin 3.9 g/dL (3.2-5.2); Calcium 8.9 mg/dL (8.6-10.3); Total Bilirubin 0.5 mg/dL (0.2-1.0)
[2022-05-23 21:02] LABS: Albumin/Globulin Ratio 1.3 (1-3); C Reactive Protein 4.72 mg/L (<8.01); Total Protein 6.9 g/dL (6.4-8.9); eGFR CKD-EPI 105.1 (>60)
[2022-05-23 21:44] LABS: Urine Color Yellow
[2022-05-23 21:45] LABS: Urine Appearance Clear; Urine Bilirubin Negative (Negative); Urine Blood Negative (Negative); Urine Glucose Negative (Negative); Urine Ketones Negative (Negative); Urine Protein Negative (Negative); Urine Specific Gravity <1.005 (1.005-1.030)
[2022-05-23 21:46] LABS: Urine Nitrite Negative (Negative); Urine Urobilinogen 0.2 (Negative) (Negative)
[2022-05-23] MEDS ORDERED: Vancomycin per Pharmacy 1 EA NOTE FOLLOW UP SCH (22:00)
[2022-05-24] MEDS: Enoxaparin 40 MG/0.4 ML SYR SUBCUT SCH ×2 (00:30→20:23)
[2022-05-24] MEDS: Mometasone/Formoter 200/5 MDI INH SCH ×3 (00:32→20:05)
[2022-05-24] MEDS: SPIRIVA Respimat (tiotropium) 2.5 mcg/inh Inhaler INH SCH (00:33)
[2022-05-24] MEDS ORDERED: Magnesium Hydroxide LIQ 30 ML UDC PO PRN (01:00)
[2022-05-24] MEDS ORDERED: Senna TAB 8.6 mg TAB PO PRN (01:00)
[2022-05-24] MEDS: ZOSYN 3.375 GM Q8H per EXTENDED INFUSION IV SCH ×2 (01:12→08:19)
[2022-05-24] MEDS: Vancomycin 1000 MG in NS 0.9% 250 ML IVPB SCH ×3 (05:47→20:26)
[2022-05-24 06:35] LABS: ABS Eosinophils 0.1 10^3/ul (0-0.6); ABS Lymphocytes 1.4 10^3/ul (1.0-4.8); ABS Neutrophils 5.2 10^3/ul (1.5-7.7); Eosinophil % 1.3 %; Hematocrit 45 % (42-52); Lymphocyte % 17.9 %; Mean Corpuscular HGB Conc 35 g/dL (31-36); Mean Corpuscular Hemoglobin 41 pg (27-31); Mean Corpuscular Volume 115 fL (80-94); Mean Platelet Volume 7.7 fL (7.4-10.4); Platelet Count 167 10^3/uL (150-450); Red Blood Count 3.92 10^6 /uL (4.18-5.48); Red Cell Distribution Width 16 % (10-15); White Blood Count 7.6 10^3/uL (3.5-10.8)
[2022-05-24 06:38] LABS: Blood Urea Nitrogen 5 mg/dL (6-24); CO2 Carbon Dioxide 31 mmol/L (22-32); Calcium 8.2 mg/dL (8.6-10.3); Chloride 102 mmol/L (101-111); Glucose 78 mg/dL (70-100); Magnesium 1.8 mg/dL (1.9-2.7); Sodium 136 mmol/L (135-145); eGFR CKD-EPI 102.3 (>60)
[2022-05-24 06:44] LABS: Anion Gap 3 mmol/L (2-11)
[2022-05-24] MEDS ORDERED: Nicotine GUM 4MG FRUIT FLAVOR PO PRN (06:58)
[2022-05-24] MEDS ORDERED: Vancomycin 1,000 MG in NS 0.9% 250 ml 250 ML IVPB ONE (07:30)
[2022-05-24] MEDS ORDERED: Nicotine Lozenge mini 4 MG LOZNG.MINI MT PRN (08:14)
[2022-05-24] MEDS ORDERED: Nicotine PATCH 21 MG/24 HR PATCH TRANSDERM SCH (09:00)
[2022-05-24] MEDS: Albuterol HFA INHALER 8 gm MDI INH PRN (09:29)
[2022-05-24] MEDS ORDERED: Albuterol 2.5mg/3 ml (0.083%) NEB.SOLN INH PRN (10:52)
[2022-05-24] MEDS ORDERED: Multivitamins/Minerals TAB ONE (15:48)
[2022-05-24] MEDS: cefTRIAXone 1 gm/50 mL D5W 1 GM/50 ML BAG IV SCH (15:50)
[2022-05-24] MEDS: Multivitamins/Minerals TAB PO SCH (15:51)
[2022-05-24] MEDS ORDERED: Vancomycin Trough Check NOTE FOLLOW UP ONE (19:00)
[2022-05-24] MEDS: Senna TAB 8.6 mg TAB PO SCH (20:24)
[2022-05-25] MEDS: Vancomycin 1,250 MG in NS 0.9% 250 ml 250 ML IVPB SCH ×2 (00:39→12:29)
[2022-05-25] MEDS: Nicotine PATCH 21 MG/24 HR PATCH TRANSDERM SCH ×2 (01:14→09:53)
[2022-05-25] MEDS: Mometasone/Formoter 200/5 MDI INH SCH ×3 (01:21→19:26)
[2022-05-25] MEDS: SPIRIVA Respimat (tiotropium) 2.5 mcg/inh Inhaler INH SCH (01:22)
[2022-05-25 06:03] LABS: Hematocrit 41 % (42-52); Hemoglobin 14.5 g/dL (14.0-18.0); Mean Corpuscular HGB Conc 36 g/dL (31-36); Mean Corpuscular Hemoglobin 41 pg (27-31); Mean Corpuscular Volume 115 fL (80-94); Mean Platelet Volume 8.2 fL (7.4-10.4); Platelet Count 150 10^3/uL (150-450); Red Blood Count 3.52 10^6 /uL (4.18-5.48); Red Cell Distribution Width 16 % (10-15); White Blood Count 7.8 10^3/uL (3.5-10.8)
[2022-05-25 06:04] LABS: Blood Urea Nitrogen 4 mg/dL (6-24); CO2 Carbon Dioxide 28 mmol/L (22-32); Calcium 8.1 mg/dL (8.6-10.3); Chloride 105 mmol/L (101-111); Glucose 81 mg/dL (70-100); Magnesium 1.9 mg/dL (1.9-2.7); Potassium 4.1 mmol/L (3.5-5.0); Sodium 132 mmol/L (135-145); eGFR CKD-EPI 109.3 (>60)
[2022-05-25 06:18] LABS: ABS Eosinophils 0.1 10^3/ul (0-0.6); ABS Lymphocytes 1.1 10^3/ul (1.0-4.8); ABS Monocytes 0.9 10^3/ul (0-0.8); ABS Neutrophils 5.9 10^3/ul (1.5-7.7); Eosinophil % 1.1 %; Lymphocyte % 13.4 %
[2022-05-25] MEDS: Multivitamins/Minerals TAB PO SCH (09:55)
[2022-05-25] MEDS: cefTRIAXone 1 gm/50 mL D5W 1 GM/50 ML BAG IV SCH (16:13)
[2022-05-25] MEDS: Enoxaparin 40 MG/0.4 ML SYR SUBCUT SCH (20:24)
[2022-05-25] MEDS: Senna TAB 8.6 mg TAB PO SCH (20:24)
[2022-05-26] MEDS: Vancomycin 1,250 MG in NS 0.9% 250 ml 250 ML IVPB SCH ×2 (00:52→13:14)
[2022-05-26] MEDS: SPIRIVA Respimat (tiotropium) 2.5 mcg/inh Inhaler INH SCH (05:34)
[2022-05-26 06:26] LABS: Calcium 8.2 mg/dL (8.6-10.3); Magnesium 2.1 mg/dL (1.9-2.7); Potassium 4.5 mmol/L (3.5-5.0); eGFR CKD-EPI 105.4 (>60)
[2022-05-26] MEDS: Multivitamins/Minerals TAB PO SCH (09:18)
[2022-05-26] MEDS: Nicotine PATCH 21 MG/24 HR PATCH TRANSDERM SCH (10:43)
[2022-05-26] MEDS ORDERED: Vancomycin Trough Check NOTE FOLLOW UP ONE (11:30)
[2022-05-26 12:36] LABS: Vancomycin Trough 17.5 mcg/mL; eGFR CKD-EPI 105.4 (>60)
[2022-05-26] MEDS: Mometasone/Formoter 200/5 MDI INH SCH ×2 (14:09)
[2022-05-26] MEDS: cefTRIAXone 1 gm/50 mL D5W 1 GM/50 ML BAG IV SCH (17:03)
[2022-05-26] MEDS: Enoxaparin 40 MG/0.4 ML SYR SUBCUT SCH (20:27)
[2022-05-26] MEDS: Albuterol HFA INHALER 8 gm MDI INH PRN (20:28)
[2022-05-26] MEDS: Senna TAB 8.6 mg TAB PO SCH (20:28)
[2022-05-27] MEDS: Vancomycin 1,250 MG in NS 0.9% 250 ml 250 ML IVPB SCH ×2 (00:42→13:45)
[2022-05-27] MEDS: SPIRIVA Respimat (tiotropium) 2.5 mcg/inh Inhaler INH SCH (07:41)
[2022-05-27] MEDS: Mometasone/Formoter 200/5 MDI INH SCH ×2 (07:43→19:26)
[2022-05-27] MEDS: Multivitamins/Minerals TAB PO SCH (08:40)
[2022-05-27] MEDS: Nicotine PATCH 21 MG/24 HR PATCH TRANSDERM SCH (08:42)
[2022-05-27] MEDS: cefTRIAXone 1 gm/50 mL D5W 1 GM/50 ML BAG IV SCH (17:54)
[2022-05-27] MEDS: Senna TAB 8.6 mg TAB PO SCH (20:54)
[2022-05-27] MEDS: Enoxaparin 40 MG/0.4 ML SYR SUBCUT SCH (20:55)
[2022-05-28] MEDS: Vancomycin 1,250 MG in NS 0.9% 250 ml 250 ML IVPB SCH ×2 (01:45→14:57)
[2022-05-28] MEDS: SPIRIVA Respimat (tiotropium) 2.5 mcg/inh Inhaler INH SCH (07:22)
[2022-05-28] MEDS: Mometasone/Formoter 200/5 MDI INH SCH ×2 (07:23→21:16)
[2022-05-28] MEDS ORDERED: Lidocaine 1% MPF 5 ML VIAL ONE (08:07)
[2022-05-28] MEDS ORDERED: Iohexol 350 (CONTRAST) 100 ML PAK IV ONE (08:07)
[2022-05-28] MEDS ORDERED: Heparin 2 UNITS/ML IVPREMIX 3,000 UNIT/1,500 ML BAG IV ONE (08:08)
[2022-05-28] MEDS ORDERED: Midazolam 5 mg/5 ml VIAL 1 mg/ml 5 ml VIAL (5 mg) ONE (08:22)
[2022-05-28] MEDS ORDERED: Heparin 1,000 UNIT/ML 10 ml (10,000 UNITS) CATHLAB/DIALYSIS ONE ×2 (08:22→11:05)
[2022-05-28] MEDS ORDERED: fentaNYL 100 mcg/2 ml 50 MCG/ML VIAL ONE ×3 (08:22→11:09)
[2022-05-28] MEDS ORDERED: Heparin 2 UNITS/ML IVPREMIX 1,000 UNIT/500 ML BAG IV ONE ×2 (10:55→10:57)
[2022-05-28] MEDS: Multivitamins/Minerals TAB PO SCH (14:43)
[2022-05-28] MEDS: Nicotine PATCH 21 MG/24 HR PATCH TRANSDERM SCH (15:02)
[2022-05-28] MEDS: cefTRIAXone 1 gm/50 mL D5W 1 GM/50 ML BAG IV SCH (17:34)
[2022-05-28] MEDS: Enoxaparin 40 MG/0.4 ML SYR SUBCUT SCH (21:01)
[2022-05-28] MEDS: Senna TAB 8.6 mg TAB PO SCH (21:01)
[2022-05-29] MEDS: Vancomycin 1,250 MG in NS 0.9% 250 ml 250 ML IVPB SCH (00:27)
[2022-05-29] MEDS: Mometasone/Formoter 200/5 MDI INH SCH (07:42)
[2022-05-29] MEDS: SPIRIVA Respimat (tiotropium) 2.5 mcg/inh Inhaler INH SCH (08:05)
[2022-05-29] MEDS: Nicotine PATCH 21 MG/24 HR PATCH TRANSDERM SCH (09:27)
[2022-05-29] MEDS: Multivitamins/Minerals TAB PO SCH (09:27)
[2022-05-29 11:02] VITALS: BP 122/73
[2022-05-29] MEDS ORDERED: Vancomycin Trough Check NOTE FOLLOW UP ONE (11:30)
[2022-05-29 12:20] LABS: eGFR CKD-EPI 71.7 (>60)
[2022-05-29 12:23] LABS: Vancomycin Trough 33.8 mcg/mL
[2022-05-30] MEDS ORDERED: Vancomycin Random Level NOTE FOLLOW UP ONE (06:00)
== END 2022-05-29 13:00 | disposition home or self-care (01) | DRG 580 ==
LOC: ED 15:51 → EDHOLD 15:51 → SUATTDRO 19:24 → SSU 22:57 → SUATTDRO 05-25 11:00
PROVIDERS: ADMIT Student in an Organized Health Care Education/Training Program; ATTEND Student in an Organized Health Care Education/Training Program

== ENCOUNTER 2023-03-02 08:23 | Inpatient (IN) ==
[2023-03-02 09:10] LABS: ABS Eosinophils 0.1 10^3/uL (0.0-0.5); ABS Lymphocytes 1.5 10^3/uL (1.0-4.8); ABS Monocytes 1.1 10^3/uL (0.0-1.1); ABS Neutrophils 5.5 10^3/uL (1.5-7.6); ABS Nucleated RBC 0.01 10^3/ul; Eosinophil % 0.7 %; Hematocrit 49.5 % (38-53); Hemoglobin 17.3 g/dL (13.2-16.3); Lymphocyte % 18.2 %; Mean Corpuscular Hemoglobin 38.8 pg (27-33); Mean Corpuscular Volume 110.9 fL (80-97); Mean Platelet Volume 7.6 fL (7.5-11.2); Nucleated Red Blood Cells % 0.1 /100 WBC (0.0-0.4); Platelet Count 198 10^3/uL (150-450); Red Blood Count 4.46 10^6/uL (4.06-5.63); White Blood Count 8.2 10^3/uL (3.6-10.2)
[2023-03-02 09:14] LABS: Activated Partial Thrombo Time 31.4 seconds (26.0-38.0); INR 0.99 (0.88-1.18)
[2023-03-02] MEDS ORDERED: Nicotine PATCH 14 MG/24 HR PATCH TRANSDERM ONE ×2 (09:31→09:32)
[2023-03-02 09:49] LABS: Albumin/Globulin Ratio 1.6 (1-3); Calcium 8.9 mg/dL (8.6-10.3); Creatinine, Serum 0.75 mg/dL (0.67-1.17); Globulin 2.5 g/dL (2-4); Magnesium 1.7 mg/dL (1.9-2.7); Potassium 3.7 mmol/L (3.5-5.0); Total Bilirubin 0.6 mg/dL (0.2-1.0); Total Protein 6.5 g/dL (6.4-8.9); eGFR CKD-EPI 99.5 (>60)
[2023-03-02 09:58] LABS: Urine Appearance Clear; Urine Bilirubin Negative (Negative); Urine Blood Negative (Negative); Urine Color Straw; Urine Glucose Negative (Negative); Urine Ketones Negative (Negative); Urine Nitrite Negative (Negative); Urine Protein Negative (Negative); Urine Specific Gravity 1.003 (1.002-1.030); Urine Urobilinogen Negative (Negative)
[2023-03-02] MEDS ORDERED: Thiamine 100 MG/ML 2 ml VIAL 100 MG, Folic Acid IV 1 MG, Multiple Vitamin IV ADULT 10 M... IV ONE (10:00)
[2023-03-02] MEDS ORDERED: Iohexol 350 (CONTRAST) 500 ML MDV IV ONE (10:01)
[2023-03-02 10:04] LABS: TSH Ultra Thyroid Stim Horm 0.87 mcIU/mL (0.34-5.60)
[2023-03-02 10:25] LABS: High Sensitivity Troponin 1 Hr 4 pg/mL (<20)
[2023-03-02] MEDS ORDERED: Albuterol HFA INHALER 8 gm MDI INH ONE (11:10)
[2023-03-02] MEDS ORDERED: Albuterol HFA INHALER 8 gm MDI INH PRN (12:20)
[2023-03-02] MEDS ORDERED: Thiamine 100 MG/ML 2 ml VIAL (200 mg) IM ONE (12:22)
[2023-03-02] MEDS ORDERED: Magnesium Sulfate 2 gm BAG 2 GM/50 ML BAG IVPB ONE (12:27)
[2023-03-02 13:03] LABS: Folate 4.31 ng/mL (5.90-24.80)
[2023-03-02] MEDS: Multivitamins/Minerals TAB PO SCH (13:51)
[2023-03-02] MEDS: Enoxaparin 40 MG/0.4 ML SYR SUBCUT SCH (13:51)
[2023-03-02] MEDS: Nicotine PATCH 21 MG/24 HR PATCH TRANSDERM SCH (13:52)
[2023-03-02] MEDS ORDERED: LORazepam 2 mg VIAL 1 ml IV PUSH SCH (14:00)
[2023-03-02] MEDS ORDERED: D5LR 1000 ml BAG 1,000 ML IV SCH (14:00)
[2023-03-02 14:12] LABS: HDL Cholesterol 66.8 mg/dL
[2023-03-02] MEDS: SPIRIVA Respimat (tiotropium) 2.5 mcg/inh Inhaler INH SCH (16:12)
[2023-03-02] MEDS: Potassium & Sodium Phos 250 mg = 1 PACKET PO SCH ×2 (16:13→22:04)
[2023-03-02] MEDS: Mometasone/Formoter 200/5 MDI INH SCH (19:59)
[2023-03-03 06:23] LABS: ABS Eosinophils 0.1 10^3/uL (0.0-0.5); ABS Lymphocytes 1.1 10^3/uL (1.0-4.8); ABS Monocytes 0.6 10^3/uL (0.0-1.1); Eosinophil % 1.8 %; Hematocrit 46.9 % (38-53); Hemoglobin 16.2 g/dL (13.2-16.3); Lymphocyte % 18.7 %; Mean Corpuscular Hemoglobin 37.6 pg (27-33); Mean Corpuscular Hgb Conc 34.5 g/dL (31-36); Mean Corpuscular Volume 109.1 fL (80-97); Mean Platelet Volume 7.6 fL (7.5-11.2); Platelet Count 165 10^3/uL (150-450); Red Cell Distribution Width 13.9 % (12-17); White Blood Count 5.9 10^3/uL (3.6-10.2)
[2023-03-03 06:48] LABS: Calcium 6.8 mg/dL (8.6-10.3); Creatinine, Serum 0.51 mg/dL (0.67-1.17); Magnesium 1.6 mg/dL (1.9-2.7); Phosphorus 2.4 mg/dL (2.5-5.0); Potassium 3.3 mmol/L (3.5-5.0); eGFR CKD-EPI 111.8 (>60)
[2023-03-03] MEDS ORDERED: Magnesium Sulf 4 GM/100 ML IV 4,000 MG/100 ML BAG IVPB ONE (08:19)
[2023-03-03] MEDS ORDERED: Sulfur Hexaflouride MICROSPHR 25 MG VIAL ONE (08:27)
[2023-03-03] MEDS ORDERED: Multivitamins ADULT w/MIN LIQ 15 ML UDC PO SCH (09:00)
[2023-03-03] MEDS ORDERED: Albuterol 2.5mg/3 ml (0.083%) NEB.SOLN INH ONE (10:21)
[2023-03-03] MEDS ORDERED: Morphine 2 MG/ML SYRINGE IV ONE (10:22)
[2023-03-03] MEDS: Multivitamins/Minerals TAB PO SCH (10:29)
[2023-03-03] MEDS: Nicotine PATCH 21 MG/24 HR PATCH TRANSDERM SCH (10:29)
[2023-03-03] MEDS: SPIRIVA Respimat (tiotropium) 2.5 mcg/inh Inhaler INH SCH (10:30)
[2023-03-03] MEDS: Mometasone/Formoter 200/5 MDI INH SCH ×2 (11:04→19:29)
[2023-03-03] MEDS: Potassium & Sodium Phos 250 mg = 1 PACKET PO SCH (11:38)
[2023-03-03] MEDS: Enoxaparin 40 MG/0.4 ML SYR SUBCUT SCH (14:46)
[2023-03-03] MEDS: Morphine 2 MG/ML SYRINGE IV PRN ×2 (18:14→20:47)
[2023-03-04] MEDS ORDERED: Nicotine GUM 4MG FRUIT FLAVOR PO PRN (00:30)
[2023-03-04] MEDS: Morphine 2 MG/ML SYRINGE IV PRN ×3 (00:40→10:45)
[2023-03-04] MEDS: Multivitamins/Minerals TAB PO SCH (07:56)
[2023-03-04] MEDS: Nicotine PATCH 21 MG/24 HR PATCH TRANSDERM SCH (07:56)
[2023-03-04] MEDS: Aspirin EC 81 mg TAB.EC (enteric coated) PO SCH (07:57)
[2023-03-04] MEDS: Mometasone/Formoter 200/5 MDI INH SCH ×2 (08:01→19:15)
[2023-03-04] MEDS: SPIRIVA Respimat (tiotropium) 2.5 mcg/inh Inhaler INH SCH (08:04)
[2023-03-04 09:24] LABS: Calcium 8.7 mg/dL (8.6-10.3); Creatinine, Serum 0.77 mg/dL (0.67-1.17); Magnesium 2.2 mg/dL (1.9-2.7); Potassium 4.6 mmol/L (3.5-5.0); eGFR CKD-EPI 98.7 (>60)
[2023-03-04] MEDS: Enoxaparin 40 MG/0.4 ML SYR SUBCUT SCH (13:18)
[2023-03-04] MEDS ORDERED: Iohexol 350 (CONTRAST) 500 ML MDV IV ONE (17:27)
[2023-03-05] MEDS: Morphine 2 MG/ML SYRINGE IV PRN (04:47)
[2023-03-05 06:12] VITALS: BP 155/69
[2023-03-05] MEDS: Mometasone/Formoter 200/5 MDI INH SCH (07:40)
[2023-03-05] MEDS: SPIRIVA Respimat (tiotropium) 2.5 mcg/inh Inhaler INH SCH (07:42)
[2023-03-05] MEDS: Multivitamins/Minerals TAB PO SCH (08:36)
[2023-03-05] MEDS: Aspirin EC 81 mg TAB.EC (enteric coated) PO SCH (08:36)
[2023-03-05] MEDS: Nicotine PATCH 21 MG/24 HR PATCH TRANSDERM SCH (08:37)
== END 2023-03-05 09:00 | disposition home or self-care (01) | DRG 65 ==
LOC: EDHOLD 08:23 → ED 08:23 → EDHOLD 03-03 16:44 → MEDTELE 03-03 17:16
PROVIDERS: ADMIT Hospitalist; ATTEND Hospitalist

== ENCOUNTER 2023-03-13 18:47 | Inpatient (IN) ==
[2023-03-13 19:52] LABS: ABS Eosinophils 0.1 10^3/uL (0.0-0.5); ABS Lymphocytes 1.3 10^3/uL (1.0-4.8); ABS Monocytes 0.7 10^3/uL (0.0-1.1); ABS Neutrophils 3.7 10^3/uL (1.5-7.6); Eosinophil % 2.1 %; Hematocrit 47.2 % (38-53); Hemoglobin 16.6 g/dL (13.2-16.3); Lymphocyte % 22.5 %; Mean Corpuscular Hemoglobin 38.6 pg (27-33); Mean Corpuscular Hgb Conc 35.2 g/dL (31-36); Mean Corpuscular Volume 109.4 fL (80-97); Mean Platelet Volume 7.3 fL (7.5-11.2); Platelet Count 294 10^3/uL (150-450); Red Blood Count 4.31 10^6/uL (4.06-5.63); Red Cell Distribution Width 13.1 % (12-17); White Blood Count 5.8 10^3/uL (3.6-10.2)
[2023-03-13 20:06] LABS: Albumin 4.2 g/dL (3.2-5.2); Albumin/Globulin Ratio 1.8 (1-3); Calcium 8.9 mg/dL (8.6-10.3); Creatinine, Serum 0.74 mg/dL (0.67-1.17); Globulin 2.4 g/dL (2-4); Magnesium 1.8 mg/dL (1.9-2.7); Potassium 3.4 mmol/L (3.5-5.0); Total Bilirubin 0.3 mg/dL (0.2-1.0); Total Protein 6.6 g/dL (6.4-8.9); eGFR CKD-EPI 99.9 (>60)
[2023-03-13 21:01] LABS: TSH Ultra Thyroid Stim Horm 2.06 mcIU/mL (0.34-5.60)
[2023-03-13 21:36] LABS: High Sensitivity Troponin 1 Hr 6 pg/mL (<20)
[2023-03-13 22:18] LABS: Urine Appearance Clear; Urine Bilirubin Negative (Negative); Urine Blood Negative (Negative); Urine Color Straw; Urine Glucose Negative (Negative); Urine Ketones Negative (Negative); Urine Nitrite Negative (Negative); Urine Protein Negative (Negative); Urine Specific Gravity 1.002 (1.002-1.030); Urine Urobilinogen Negative (Negative)
[2023-03-13] MEDS ORDERED: Nicotine PATCH 21 MG/24 HR PATCH TRANSDERM ONE (22:54)
[2023-03-14] MEDS: Nicotine PATCH 21 MG/24 HR PATCH TRANSDERM SCH ×2 (03:19→22:52)
[2023-03-14] MEDS: Enoxaparin 40 MG/0.4 ML SYR SUBCUT SCH ×2 (03:52→22:35)
[2023-03-14] MEDS: Mometasone/Formoter 100/5 MDI INH SCH ×2 (06:53→19:12)
[2023-03-14] MEDS ORDERED: Magic MW-DIPH/MAG-AL-SIME/LIDO FIRST BLM KIT SWISH SPIT ONE (08:29)
[2023-03-14] MEDS ORDERED: Fluticasone-Salmeterol 250-50 DISKUS NF INH SCH (09:00)
[2023-03-14] MEDS ORDERED: Magic MouthWash1-BEN/MAAL/LIDO 180 ML BTL SWISH SPIT ONE (09:30)
[2023-03-14] MEDS: Aspirin EC 81 mg TAB.EC (enteric coated) PO SCH (09:51)
[2023-03-14] MEDS: SPIRIVA Respimat (tiotropium) 2.5 mcg/inh Inhaler INH SCH (09:51)
[2023-03-14] MEDS ORDERED: Albuterol HFA INHALER 8 gm MDI INH PRN (12:21)
[2023-03-14 12:40] LABS: ABS Eosinophils 0.1 10^3/uL (0.0-0.5); ABS Lymphocytes 1.4 10^3/uL (1.0-4.8); ABS Monocytes 0.8 10^3/uL (0.0-1.1); ABS Neutrophils 4.6 10^3/uL (1.5-7.6); Eosinophil % 1.8 %; Hemoglobin 16.3 g/dL (13.2-16.3); Lymphocyte % 19.9 %; Mean Corpuscular Hgb Conc 34.6 g/dL (31-36); Mean Corpuscular Volume 109.7 fL (80-97); Mean Platelet Volume 7.4 fL (7.5-11.2); Platelet Count 300 10^3/uL (150-450); Red Blood Count 4.29 10^6/uL (4.06-5.63); Red Cell Distribution Width 13.2 % (12-17); White Blood Count 6.9 10^3/uL (3.6-10.2)
[2023-03-14 12:53] LABS: Albumin/Globulin Ratio 1.7 (1-3); Creatinine, Serum 0.71 mg/dL (0.67-1.17); Globulin 2.4 g/dL (2-4); Magnesium 1.7 mg/dL (1.9-2.7); Phosphorus 2.5 mg/dL (2.5-5.0); Potassium 3.9 mmol/L (3.5-5.0); Total Bilirubin 0.6 mg/dL (0.2-1.0); Total Protein 6.4 g/dL (6.4-8.9); eGFR CKD-EPI 101.2 (>60)
[2023-03-14] MEDS ORDERED: Magnesium Sulfate IV 3 GM in NS 0.9% 100 ml BAG 100 ML IVPB ONE (12:55)
[2023-03-14 13:43] LABS: Alcohol, S < 13 mg/dL (<13)
[2023-03-14 14:01] LABS: Vitamin D Total 25(OH) 19.6 ng/mL (20-50)
[2023-03-14] MEDS: Thiamine 100 MG/ML 2 ml VIAL 500 MG in NS 0.9% 250 ml 250 ML IV SCH ×2 (14:39→22:27)
[2023-03-14 14:54] LABS: Vitamin B12 363 pg/mL (180-914)
[2023-03-14] MEDS ORDERED: Magnesium Hydroxide LIQ 30 ML UDC PO PRN (17:41)
[2023-03-14] MEDS: Sodium Phosphate ADULT ENEMA 133 ML BTL PR PRN (18:32)
[2023-03-14] MEDS: Senna TAB 8.6 mg TAB PO PRN (22:26)
[2023-03-15] MEDS: Thiamine 100 MG/ML 2 ml VIAL 500 MG in NS 0.9% 250 ml 250 ML IV SCH ×3 (04:54→20:02)
[2023-03-15 06:06] LABS: Calcium 8.4 mg/dL (8.6-10.3); Magnesium 2.2 mg/dL (1.9-2.7); Potassium 3.9 mmol/L (3.5-5.0)
[2023-03-15 06:12] LABS: Creatinine, Serum 0.74 mg/dL (0.67-1.17); Phosphorus 2.8 mg/dL (2.5-5.0); eGFR CKD-EPI 99.9 (>60)
[2023-03-15 06:30] LABS: ABS Basophils 0.1 10^3/uL (0.0-0.1); ABS Eosinophils 0.2 10^3/uL (0.0-0.5); ABS Lymphocytes 1.1 10^3/uL (1.0-4.8); ABS Monocytes 0.7 10^3/uL (0.0-1.1); ABS Neutrophils 5.4 10^3/uL (1.5-7.6); ABS Nucleated RBC 0.01 10^3/ul; Eosinophil % 2.2 %; Hematocrit 45.2 % (38-53); Hemoglobin 15.5 g/dL (13.2-16.3); Lymphocyte % 14.4 %; Mean Corpuscular Hgb Conc 34.2 g/dL (31-36); Mean Corpuscular Volume 110.9 fL (80-97); Mean Platelet Volume 8.1 fL (7.5-11.2); Nucleated Red Blood Cells % 0.1 /100 WBC (0.0-0.4); Platelet Count 180 10^3/uL (150-450); Red Blood Count 4.08 10^6/uL (4.06-5.63); Red Cell Distribution Width 13.1 % (12-17); White Blood Count 7.4 10^3/uL (3.6-10.2)
[2023-03-15] MEDS ORDERED: Polyethylene Glycol 3350 17 GM PACKET PO PRN (07:41)
[2023-03-15] MEDS ORDERED: Senna TAB 8.6 mg TAB PO PRN (07:41)
[2023-03-15] MEDS ORDERED: Magnesium Hydroxide LIQ 30 ML UDC PO PRN (07:41)
[2023-03-15] MEDS: Mometasone/Formoter 100/5 MDI INH SCH ×2 (08:04→18:23)
[2023-03-15] MEDS: SPIRIVA Respimat (tiotropium) 2.5 mcg/inh Inhaler INH SCH (08:04)
[2023-03-15] MEDS: Multivitamins/Minerals TAB PO SCH (08:30)
[2023-03-15] MEDS: Aspirin EC 81 mg TAB.EC (enteric coated) PO SCH (08:31)
[2023-03-15] MEDS: Senna TAB 8.6 mg TAB PO PRN (08:32)
[2023-03-15] MEDS ORDERED: NON FORMULARY MED (Tiotropium Bromide [Spiriva With Handihaler] 18 mcg Capsule, W/Inhalati INH SCH (09:00)
[2023-03-15] MEDS: Sodium Phosphate ADULT ENEMA 133 ML BTL PR PRN (11:12)
[2023-03-15] MEDS: Nystatin SUSPENSION 100,000 UNITS/ML UDC SWISH SPIT SCH ×3 (13:17→19:54)
[2023-03-15] MEDS: Nicotine PATCH 21 MG/24 HR PATCH TRANSDERM SCH (19:59)
[2023-03-15] MEDS: Enoxaparin 40 MG/0.4 ML SYR SUBCUT SCH (20:00)
[2023-03-15] MEDS ORDERED: Lactulose 30 ml UDC PO ONE (22:24)
[2023-03-16] MEDS ORDERED: Iohexol 350 (CONTRAST) 500 ML MDV IV ONE (00:21)
[2023-03-16] MEDS: Thiamine 100 MG/ML 2 ml VIAL 500 MG in NS 0.9% 250 ml 250 ML IV SCH ×3 (05:05→21:20)
[2023-03-16] MEDS ORDERED: PEG 3000 GI LAVAGE 1 GALLON PO ONE (07:00)
[2023-03-16] MEDS: SPIRIVA Respimat (tiotropium) 2.5 mcg/inh Inhaler INH SCH (07:19)
[2023-03-16] MEDS: Mometasone/Formoter 100/5 MDI INH SCH ×2 (07:20→18:59)
[2023-03-16] MEDS: Nystatin SUSPENSION 100,000 UNITS/ML UDC SWISH SPIT SCH ×4 (08:48→21:05)
[2023-03-16] MEDS: Multivitamins/Minerals TAB PO SCH (08:48)
[2023-03-16] MEDS: Aspirin EC 81 mg TAB.EC (enteric coated) PO SCH (08:48)
[2023-03-16] MEDS: Benzocaine (plain) Lozenge 15 MG PO PRN (21:15)
[2023-03-16] MEDS: Enoxaparin 40 MG/0.4 ML SYR SUBCUT SCH (21:18)
[2023-03-16] MEDS: Nicotine PATCH 21 MG/24 HR PATCH TRANSDERM SCH (21:18)
[2023-03-17] MEDS: Benzocaine (plain) Lozenge 15 MG PO PRN ×2 (02:27→14:07)
[2023-03-17] MEDS: Thiamine 100 MG/ML 2 ml VIAL 500 MG in NS 0.9% 250 ml 250 ML IV SCH (04:35)
[2023-03-17] MEDS: Nystatin SUSPENSION 100,000 UNITS/ML UDC SWISH SPIT SCH ×5 (04:43→19:34)
[2023-03-17] MEDS: Mometasone/Formoter 100/5 MDI INH SCH ×2 (07:41→19:25)
[2023-03-17] MEDS: SPIRIVA Respimat (tiotropium) 2.5 mcg/inh Inhaler INH SCH (07:44)
[2023-03-17] MEDS: Multivitamins/Minerals TAB PO SCH (08:26)
[2023-03-17] MEDS: Cholecalciferol (VIT D3) 400 units TAB PO SCH (08:26)
[2023-03-17] MEDS: Aspirin EC 81 mg TAB.EC (enteric coated) PO SCH (08:27)
[2023-03-17] MEDS: Magic MW-DIPH/MAG-AL-SIME/LIDO FIRST BLM KIT SWISH SWAL SCH ×3 (12:39→19:36)
[2023-03-17] MEDS: Magnesium Hydroxide LIQ 30 ML UDC PO SCH (19:34)
[2023-03-17] MEDS: Senna TAB 8.6 mg TAB PO SCH (19:34)
[2023-03-17] MEDS: Nicotine PATCH 21 MG/24 HR PATCH TRANSDERM SCH (19:35)
[2023-03-17] MEDS: Enoxaparin 40 MG/0.4 ML SYR SUBCUT SCH (19:36)
[2023-03-18] MEDS: Benzocaine (plain) Lozenge 15 MG PO PRN (00:31)
[2023-03-18 06:23] LABS: ABS Eosinophils 0.2 10^3/uL (0.0-0.5); ABS Lymphocytes 1.2 10^3/uL (1.0-4.8); ABS Monocytes 0.9 10^3/uL (0.0-1.1); ABS Neutrophils 5.1 10^3/uL (1.5-7.6); ABS Nucleated RBC 0.01 10^3/ul; Eosinophil % 2.6 %; Hematocrit 45.1 % (38-53); Hemoglobin 15.6 g/dL (13.2-16.3); Mean Corpuscular Hemoglobin 37.8 pg (27-33); Mean Corpuscular Hgb Conc 34.7 g/dL (31-36); Mean Corpuscular Volume 109.1 fL (80-97); Mean Platelet Volume 8.3 fL (7.5-11.2); Nucleated Red Blood Cells % 0.1 /100 WBC (0.0-0.4); Platelet Count 255 10^3/uL (150-450); Red Blood Count 4.13 10^6/uL (4.06-5.63); Red Cell Distribution Width 12.8 % (12-17); White Blood Count 7.5 10^3/uL (3.6-10.2)
[2023-03-18 06:45] LABS: Calcium 8.8 mg/dL (8.6-10.3); Creatinine, Serum 0.78 mg/dL (0.67-1.17); Magnesium 1.9 mg/dL (1.9-2.7); Potassium 3.7 mmol/L (3.5-5.0); eGFR CKD-EPI 98.4 (>60)
[2023-03-18] MEDS: Polyethylene Glycol 3350 17 GM PACKET PO SCH (07:34)
[2023-03-18] MEDS: Nystatin SUSPENSION 100,000 UNITS/ML UDC SWISH SPIT SCH ×4 (07:34→21:25)
[2023-03-18] MEDS: Magnesium Hydroxide LIQ 30 ML UDC PO SCH ×2 (07:34→21:25)
[2023-03-18] MEDS: Magic MW-DIPH/MAG-AL-SIME/LIDO FIRST BLM KIT SWISH SWAL SCH ×4 (07:34→21:28)
[2023-03-18] MEDS: Aspirin EC 81 mg TAB.EC (enteric coated) PO SCH (07:36)
[2023-03-18] MEDS: Multivitamins/Minerals TAB PO SCH (07:36)
[2023-03-18] MEDS: Cholecalciferol (VIT D3) 400 units TAB PO SCH (07:36)
[2023-03-18] MEDS: SPIRIVA Respimat (tiotropium) 2.5 mcg/inh Inhaler INH SCH (08:08)
[2023-03-18] MEDS: Mometasone/Formoter 100/5 MDI INH SCH ×2 (08:09→20:10)
[2023-03-18] MEDS: Senna TAB 8.6 mg TAB PO SCH (21:25)
[2023-03-18] MEDS: Nicotine PATCH 21 MG/24 HR PATCH TRANSDERM SCH (21:26)
[2023-03-18] MEDS: Enoxaparin 40 MG/0.4 ML SYR SUBCUT SCH (21:26)
[2023-03-18] MEDS ORDERED: Nicotine Lozenge mini 2 MG LOZNG.MINI MT PRN (22:02)
[2023-03-19] MEDS: Benzocaine (plain) Lozenge 15 MG PO PRN (02:12)
[2023-03-19 05:39] LABS: ABS Eosinophils 0.2 10^3/uL (0.0-0.5); ABS Lymphocytes 1.4 10^3/uL (1.0-4.8); ABS Monocytes 1.1 10^3/uL (0.0-1.1); ABS Neutrophils 10.1 10^3/uL (1.5-7.6); Eosinophil % 1.2 %; Hematocrit 45.6 % (38-53); Hemoglobin 15.7 g/dL (13.2-16.3); Lymphocyte % 11.2 %; Mean Corpuscular Hemoglobin 37.6 pg (27-33); Mean Corpuscular Hgb Conc 34.5 g/dL (31-36); Mean Corpuscular Volume 108.9 fL (80-97); Mean Platelet Volume 8.4 fL (7.5-11.2); Platelet Count 244 10^3/uL (150-450); Red Blood Count 4.18 10^6/uL (4.06-5.63); White Blood Count 12.8 10^3/uL (3.6-10.2)
[2023-03-19 06:01] LABS: Creatinine, Serum 0.91 mg/dL (0.67-1.17); Magnesium 2.4 mg/dL (1.9-2.7); Potassium 4.4 mmol/L (3.5-5.0)
[2023-03-19] MEDS: SPIRIVA Respimat (tiotropium) 2.5 mcg/inh Inhaler INH SCH (07:42)
[2023-03-19] MEDS: Mometasone/Formoter 100/5 MDI INH SCH (07:42)
[2023-03-19] MEDS: Polyethylene Glycol 3350 17 GM PACKET PO SCH (08:16)
[2023-03-19] MEDS: Cholecalciferol (VIT D3) 400 units TAB PO SCH (08:16)
[2023-03-19] MEDS: Aspirin EC 81 mg TAB.EC (enteric coated) PO SCH (08:17)
[2023-03-19] MEDS: Multivitamins/Minerals TAB PO SCH (08:18)
[2023-03-19] MEDS: Nystatin SUSPENSION 100,000 UNITS/ML UDC SWISH SPIT SCH (08:19)
[2023-03-19] MEDS: Magnesium Hydroxide LIQ 30 ML UDC PO SCH (08:20)
[2023-03-19] MEDS: Magic MW-DIPH/MAG-AL-SIME/LIDO FIRST BLM KIT SWISH SWAL SCH (08:21)
[2023-03-19 09:14] LABS: C Reactive Protein 11.83 mg/L (<8.01)
[2023-03-19 10:15] VITALS: BP 156/84
== END 2023-03-19 12:25 | disposition home or self-care (01) | DRG 641 ==
LOC: EDHOLD 18:47 → ED 18:47 → EDHOLD 03-14 11:29 → SUATTDRO 03-14 11:29 → EDHOLD 03-14 13:29 → MED 03-14 13:33
PROVIDERS: ADMIT Internal Medicine; ATTEND Internal Medicine

== ENCOUNTER 2023-11-17 14:28 | Inpatient (IN) ==
[2023-11-17 16:09] LABS: ABS Basophils 0.1 10^3/uL (0.0-0.1); ABS Eosinophils 0.1 10^3/uL (0.0-0.5); ABS Lymphocytes 1.6 10^3/uL (1.0-4.8); ABS Monocytes 0.8 10^3/uL (0.0-1.1); ABS Neutrophils 4.5 10^3/uL (1.5-7.6); ABS Nucleated RBC 0.01 10^3/ul; Eosinophil % 2.1 %; Hematocrit 41.7 % (38-53); Hemoglobin 14.2 g/dL (13.2-16.3); Lymphocyte % 22.6 %; Mean Corpuscular Hemoglobin 33.9 pg (27-33); Mean Corpuscular Volume 99.8 fL (80-97); Mean Platelet Volume 7.5 fL (7.5-11.2); Nucleated Red Blood Cells % 0.1 %/100WBC (0.0-0.8); Platelet Count 250 10^3/uL (150-450); Red Blood Count 4.18 10^6/uL (4.06-5.63); Red Cell Distribution Width 15.3 % (12-17); White Blood Count 7.1 10^3/uL (3.6-10.2)
[2023-11-17 16:57] LABS: Albumin/Globulin Ratio 1.5 (1-3); Calcium 9.2 mg/dL (8.6-10.3); Creatinine, Serum 0.98 mg/dL (0.67-1.17); Globulin 2.7 g/dL (2-4); Magnesium 1.7 mg/dL (1.9-2.7); Potassium 3.9 mmol/L (3.5-5.0); Total Bilirubin 0.5 mg/dL (0.2-1.0); Total Protein 6.7 g/dL (6.4-8.9); eGFR CKD-EPI 84.5 (>60)
[2023-11-17] MEDS: Thiamine 100 MG/ML 2 ml VIAL 100 MG, Folic Acid IV 1 MG, Multiple Vitamin IV ADULT 10 M... IV ONE (17:03)
[2023-11-17 17:20] LABS: TSH Ultra Thyroid Stim Horm 1.75 mcIU/mL (0.34-5.60)
[2023-11-17 17:22] LABS: Urine Appearance Cloudy; Urine Bilirubin Negative (Negative); Urine Blood Negative (Negative); Urine Color Yellow; Urine Glucose Negative (Negative); Urine Ketones Negative (Negative); Urine Nitrite Negative (Negative); Urine Protein Negative (Negative); Urine Specific Gravity 1.004 (1.002-1.030); Urine Urobilinogen Negative (Negative)
[2023-11-17 17:26] LABS: Urine Bacteria 1+ (Absent); Urine Red Blood Cell Trace(0-2/hpf) (Absent); Urine Squamous Epithelial Cell Present (Absent); Urine White Blood Cell 3+(>20/hpf) (Absent)
[2023-11-17 17:41] LABS: High Sensitivity Troponin 1 Hr 5 pg/mL (<20)
[2023-11-17] MEDS: cefTRIAXone 1 gm/50 mL D5W 1 GM/50 ML BAG IV ONE (17:46)
[2023-11-17] MEDS: Thiamine 100 MG/ML 2 ml VIAL (200 mg) IM ONE (17:46)
[2023-11-17] MEDS: Albuterol HFA INHALER 8 gm MDI INH ONE (18:40)
[2023-11-17] MEDS ORDERED: Thiamine 100 MG/ML 2 ml VIAL 100 MG, Folic Acid IV 1 MG, Multiple Vitamin IV ADULT 10 M... IV ONE (22:42)
[2023-11-17] MEDS ORDERED: Senna TAB 8.6 mg TAB PO PRN (22:54)
[2023-11-17] MEDS ORDERED: Magnesium Hydroxide LIQ 30 ML UDC PO PRN (22:54)
[2023-11-17] MEDS: NS 0.9% 1000 ml BAG 1,000 ML IV SCH (23:12)
[2023-11-17] MEDS: Nicotine PATCH 21 MG/24 HR PATCH TRANSDERM ONE (23:15)
[2023-11-17] MEDS: Enoxaparin 40 MG/0.4 ML SYR SUBCUT SCH (23:17)
[2023-11-17 23:18] LABS: Phosphorus 3.1 mg/dL (2.5-5.0)
[2023-11-17] MEDS: Magnesium Sulfate 2 gm BAG 2 GM/50 ML BAG IVPB ONE (23:21)
[2023-11-18] MEDS: Albuterol HFA INHALER 8 gm MDI INH PRN (01:48)
[2023-11-18 06:28] LABS: ABS Eosinophils 0.2 10^3/uL (0.0-0.5); ABS Lymphocytes 1.4 10^3/uL (1.0-4.8); ABS Monocytes 0.7 10^3/uL (0.0-1.1); ABS Neutrophils 4.5 10^3/uL (1.5-7.6); Eosinophil % 2.7 %; Hematocrit 38.8 % (38-53); Hemoglobin 13.1 g/dL (13.2-16.3); Lymphocyte % 20.2 %; Mean Corpuscular Hemoglobin 33.8 pg (27-33); Mean Corpuscular Hgb Conc 33.9 g/dL (31-36); Mean Corpuscular Volume 99.8 fL (80-97); Platelet Count 222 10^3/uL (150-450); Red Blood Count 3.88 10^6/uL (4.06-5.63); Red Cell Distribution Width 14.6 % (12-17); White Blood Count 6.8 10^3/uL (3.6-10.2)
[2023-11-18 06:44] LABS: Albumin 3.8 g/dL (3.2-5.2); Albumin/Globulin Ratio 1.5 (1-3); Calcium 8.5 mg/dL (8.6-10.3); Creatinine, Serum 0.87 mg/dL (0.67-1.17); Globulin 2.5 g/dL (2-4); Potassium 3.8 mmol/L (3.5-5.0); Total Bilirubin 0.6 mg/dL (0.2-1.0); Total Protein 6.3 g/dL (6.4-8.9); eGFR CKD-EPI 94.6 (>60)
[2023-11-18] MEDS: Mometasone/Formoter 200/5 MDI INH SCH (08:02)
[2023-11-18] MEDS: SPIRIVA Respimat (tiotropium) 2.5 mcg/inh Inhaler INH SCH (08:03)
[2023-11-18] MEDS: Multivitamins/Minerals TAB PO SCH (08:51)
[2023-11-18] MEDS: Aspirin EC 81 mg TAB.EC (enteric coated) PO SCH (08:51)
[2023-11-18] MEDS: cefTRIAXone 1 gm/50 mL D5W 1 GM/50 ML BAG IV SCH (11:41)
[2023-11-18] MEDS ORDERED: Nicotine Lozenge mini 4 MG LOZNG.MINI MT PRN (13:39)
[2023-11-18] MEDS ORDERED: Nicotine GUM 4MG FRUIT FLAVOR PO PRN (13:39)
[2023-11-18] MEDS: Nicotine PATCH 21 MG/24 HR PATCH TRANSDERM ONE (14:49)
[2023-11-18 16:58] LABS: % Iron Saturation 50 % (15-55); .Transferrin 233 mg/dL (203-362); Iron 164 ug/dL (50-212); Total Iron Binding Capacity 326 mcg/dL (250-450); Unsaturated Iron Binding 162 ug/dL
[2023-11-18 17:20] LABS: Ferritin 65.9 ng/mL (24-336)
[2023-11-18 17:23] LABS: Folate > 20.00 ng/mL (5.90-24.80)
[2023-11-18 17:24] LABS: Vitamin B12 363 pg/mL (180-914)
[2023-11-18] MEDS ORDERED: Nicotine PATCH 21 MG/24 HR PATCH TRANSDERM SCH (21:00)
[2023-11-18] MEDS: Thiamine 100 MG/ML 2 ml VIAL 500 MG in NS 0.9% 250 ml 250 ML IV ONE (22:09)
[2023-11-19] MEDS: Lidocaine PATCH 4% TOPICAL ONE ×2 (01:21→21:17)
[2023-11-19 08:01] LABS: ABS Eosinophils 0.3 10^3/uL (0.0-0.5); ABS Lymphocytes 1.5 10^3/uL (1.0-4.8); ABS Monocytes 0.7 10^3/uL (0.0-1.1); ABS Neutrophils 3.9 10^3/uL (1.5-7.6); ABS Nucleated RBC 0.01 10^3/ul; Hematocrit 38.8 % (38-53); Hemoglobin 13.3 g/dL (13.2-16.3); Mean Corpuscular Hemoglobin 34.5 pg (27-33); Mean Corpuscular Hgb Conc 34.4 g/dL (31-36); Mean Corpuscular Volume 100.3 fL (80-97); Mean Platelet Volume 8.2 fL (7.5-11.2); Nucleated Red Blood Cells % 0.2 %/100WBC (0.0-0.8); Platelet Count 218 10^3/uL (150-450); Red Blood Count 3.87 10^6/uL (4.06-5.63); Red Cell Distribution Width 15.1 % (12-17); White Blood Count 6.4 10^3/uL (3.6-10.2)
[2023-11-19 08:33] LABS: Calcium 8.7 mg/dL (8.6-10.3); Creatinine, Serum 0.78 mg/dL (0.67-1.17); Magnesium 1.9 mg/dL (1.9-2.7); Phosphorus 3.3 mg/dL (2.5-5.0); Potassium 4.2 mmol/L (3.5-5.0); eGFR CKD-EPI 97.7 (>60)
[2023-11-19] MEDS: Cyanocobalamin INJ 1,000 MCG/ML VIAL 1 ML VIAL IM ONE (10:00)
[2023-11-19] MEDS: Nicotine PATCH 21 MG/24 HR PATCH TRANSDERM SCH (10:00)
[2023-11-19] MEDS: Thiamine 100 MG/ML 2 ml VIAL 500 MG in NS 0.9% 250 ml 250 ML IV SCH (12:42)
[2023-11-20 06:39] LABS: ABS Basophils 0.1 10^3/uL (0.0-0.1); ABS Eosinophils 0.4 10^3/uL (0.0-0.5); ABS Lymphocytes 1.6 10^3/uL (1.0-4.8); ABS Monocytes 0.8 10^3/uL (0.0-1.1); Eosinophil % 6.3 %; Hematocrit 39.5 % (38-53); Hemoglobin 13.3 g/dL (13.2-16.3); Lymphocyte % 23.3 %; Mean Corpuscular Hemoglobin 33.8 pg (27-33); Mean Corpuscular Hgb Conc 33.8 g/dL (31-36); Mean Corpuscular Volume 100.1 fL (80-97); Mean Platelet Volume 7.9 fL (7.5-11.2); Nucleated Red Blood Cells % 0.1 %/100WBC (0.0-0.8); Platelet Count 217 10^3/uL (150-450); Red Blood Count 3.94 10^6/uL (4.06-5.63); Red Cell Distribution Width 15.1 % (12-17)
[2023-11-20 07:04] LABS: Calcium 8.7 mg/dL (8.6-10.3); Creatinine, Serum 0.94 mg/dL (0.67-1.17); Magnesium 1.9 mg/dL (1.9-2.7); Potassium 4.7 mmol/L (3.5-5.0); eGFR CKD-EPI 88.9 (>60)
[2023-11-20] MEDS: Lidocaine PATCH 4% TOPICAL SCH (21:24)
[2023-11-21 06:44] LABS: ABS Eosinophils 0.4 10^3/uL (0.0-0.5); ABS Lymphocytes 1.4 10^3/uL (1.0-4.8); ABS Monocytes 0.7 10^3/uL (0.0-1.1); ABS Neutrophils 4.3 10^3/uL (1.5-7.6); Eosinophil % 5.3 %; Hematocrit 39.1 % (38-53); Hemoglobin 13.3 g/dL (13.2-16.3); Lymphocyte % 20.9 %; Mean Corpuscular Hemoglobin 34.1 pg (27-33); Mean Corpuscular Hgb Conc 34.1 g/dL (31-36); Mean Corpuscular Volume 100.3 fL (80-97); Mean Platelet Volume 7.6 fL (7.5-11.2); Platelet Count 214 10^3/uL (150-450); Red Cell Distribution Width 14.9 % (12-17); White Blood Count 6.9 10^3/uL (3.6-10.2)
[2023-11-21 07:08] LABS: Calcium 8.6 mg/dL (8.6-10.3); Creatinine, Serum 0.81 mg/dL (0.67-1.17); Potassium 4.4 mmol/L (3.5-5.0); eGFR CKD-EPI 96.6 (>60)
[2023-11-21 10:01] VITALS: BP 157/80
== END 2023-11-21 13:55 | disposition home or self-care (01) | DRG 312 ==
LOC: ED 14:28 → EDHOLD 18:27 → SUATTDRO 18:27 → INTOOBSV 18:27 → MEDTELE 22:53
PROVIDERS: ADMIT Internal Medicine; ATTEND Internal Medicine

== ENCOUNTER 2024-01-21 07:59 | Inpatient (IN) ==
[2024-01-21] MEDS: Acetaminophen IV 1 GM/100ML 1,000 MG/100 ML BAG IV ONE (10:41)
[2024-01-21] MEDS: Nicotine PATCH 21 MG/24 HR PATCH TRANSDERM ONE (10:44)
[2024-01-21 10:57] LABS: ABS Basophils 0.1 10^3/uL (0.0-0.1); ABS Lymphocytes 0.8 10^3/uL (1.0-4.8); ABS Monocytes 1.2 10^3/uL (0.0-1.1); ABS Neutrophils 12.4 10^3/uL (1.5-7.6); ABS Nucleated RBC 0.01 10^3/ul; Hematocrit 36.5 % (38-53); Hemoglobin 12.4 g/dL (13.2-16.3); Lymphocyte % 5.7 %; Mean Corpuscular Hemoglobin 35.5 pg (27-33); Mean Corpuscular Hgb Conc 34.1 g/dL (31-36); Mean Corpuscular Volume 104.2 fL (80-97); Platelet Count 252 10^3/uL (150-450); Red Blood Count 3.51 10^6/uL (4.06-5.63); Red Cell Distribution Width 15.6 % (12-17); White Blood Count 14.5 10^3/uL (3.6-10.2)
[2024-01-21 11:11] LABS: Activated Partial Thrombo Time 29.8 seconds (26.0-38.0); INR 1.17 (0.83-1.13)
[2024-01-21] MEDS: Morphine 4 MG/ML VIAL (1 ml) IV ONE (11:42)
[2024-01-21 11:49] LABS: Albumin 3.9 g/dL (3.2-5.2); Albumin/Globulin Ratio 1.5 (1-3); Calcium 8.6 mg/dL (8.6-10.3); Creatinine, Serum 1.21 mg/dL (0.67-1.17); Globulin 2.6 g/dL (2-4); Potassium 4.3 mmol/L (3.5-5.0); Total Bilirubin 0.7 mg/dL (0.2-1.0); Total Protein 6.5 g/dL (6.4-8.9); eGFR CKD-EPI 65.6 (>60)
[2024-01-21 12:04] LABS: C Reactive Protein 160.68 mg/L (<8.01)
[2024-01-21] MEDS: Iohexol 350 (CONTRAST) 500 ML MDV IV ONE (12:34)
[2024-01-21] MEDS: NS 0.9% 1000 ml BAG 500 ML IV ONE (15:29)
[2024-01-21 15:35] LABS: Urine Appearance Clear; Urine Bacteria 1+ /HPF (Absent); Urine Bilirubin Negative (Negative); Urine Blood 1+ (Negative); Urine Color Light-Yellow; Urine Glucose Negative (Negative); Urine Ketones Negative (Negative); Urine Nitrite Negative (Negative); Urine Protein 1+ (>=30 mg/dL) (Negative); Urine Red Blood Cell 3+(>10/hpf) /HPF (0-Trace); Urine Specific Gravity >1.050 (1.002-1.030); Urine Urobilinogen Negative (Negative); Urine White Blood Cell 3+(>20/hpf) /HPF (0-Trace)
[2024-01-21 16:52] LABS: High Sensitivity Troponin 1 Hr 8 pg/mL (<20)
[2024-01-21] MEDS: cefTRIAXone 1 gm/50 mL D5W 1 GM/50 ML BAG IV ONE (17:31)
[2024-01-21] MEDS ORDERED: Albuterol HFA INHALER 8 gm MDI INH PRN (20:17)
[2024-01-21] MEDS: Enoxaparin 40 MG/0.4 ML SYR SUBCUT SCH (20:18)
[2024-01-21] MEDS ORDERED: Thiamine IV 100 MG/ML VIAL (only for Bannana Bags !) IVPB SCH (22:00)
[2024-01-21] MEDS: Multivitamins/Minerals TAB PO SCH (22:06)
[2024-01-21] MEDS: SPIRIVA Respimat (tiotropium) 2.5 mcg/inh Inhaler INH SCH (22:07)
[2024-01-21] MEDS: Mometasone/Formoter 200/5 MDI INH SCH (22:08)
[2024-01-21] MEDS: NS 0.9% IV SCH (22:11)
[2024-01-21] MEDS: THIAMINE IV SCH (22:11)
[2024-01-21] MEDS: Thiamine 100 MG/ML 2 ml VIAL (200 mg) IM ONE (22:18)
[2024-01-21] MEDS ORDERED: Polyethylene Glycol 3350 17 GM PACKET PO PRN (23:58)
[2024-01-22] MEDS ORDERED: Calcium Carb (TUMS) 500 mg CHEW TAB PO PRN (01:47)
[2024-01-22] MEDS: Senna TAB 8.6 mg TAB PO PRN (02:18)
[2024-01-22] MEDS: Lidocaine 4% GEL 10 GM TUBE TOPICAL PRN (06:33)
[2024-01-22 07:48] LABS: Hematocrit 42.7 % (38-53); Mean Corpuscular Hemoglobin 36.5 pg (27-33); Mean Corpuscular Hgb Conc 32.9 g/dL (31-36); Mean Platelet Volume 6.9 fL (7.5-11.2); Platelet Count 208 10^3/uL (150-450); Red Blood Count 3.85 10^6/uL (4.06-5.63); Red Cell Distribution Width 16.2 % (12-17)
[2024-01-22 08:01] LABS: Blood Urea Nitrogen 19 mg/dL (6-24); CO2 Carbon Dioxide 13 mmol/L (22-32); Chloride 98 mmol/L (101-111); Creatinine, Serum 1.66 mg/dL (0.67-1.17); Glucose 70 mg/dL (70-100); Sodium 128 mmol/L (135-145); eGFR CKD-EPI 44.9 (>60)
[2024-01-22] MEDS: Aspirin EC 81 mg TAB.EC (enteric coated) PO SCH (08:20)
[2024-01-22] MEDS: Nicotine PATCH 21 MG/24 HR PATCH TRANSDERM SCH (08:21)
[2024-01-22] MEDS: Lactated Ringers 1000 ml BAG 1,000 ML IV ONE (08:22)
[2024-01-22 10:04] LABS: Magnesium 1.4 mg/dL (1.9-2.7); Potassium Redraw 3.9 mmol/L (3.5-5.0)
[2024-01-22] MEDS: Calcium Carb (TUMS) 500 mg CHEW TAB PO SCH (11:51)
[2024-01-22] MEDS: NS 0.9% 1000 ml BAG 1,000 ML IV SCH (11:51)
[2024-01-22] MEDS: Magnesium Sulf 4 GM/100 ML IV 4,000 MG/100 ML BAG IVPB ONE (11:51)
[2024-01-22 17:12] LABS: Calcium 7.8 mg/dL (8.6-10.3); Creatinine, Serum 1.5 mg/dL (0.67-1.17); Magnesium 2.9 mg/dL (1.9-2.7); Phosphorus 3.9 mg/dL (2.5-5.0); eGFR CKD-EPI 50.7 (>60)
[2024-01-22] MEDS: cefTRIAXone 1 gm/50 mL D5W 1 GM/50 ML BAG IV SCH (17:57)
[2024-01-22] MEDS: Nicotine Lozenge mini 4 MG LOZNG.MINI MT PRN (20:29)
[2024-01-23 06:04] LABS: ABS Eosinophils 0.1 10^3/uL (0.0-0.5); ABS Lymphocytes 1.1 10^3/uL (1.0-4.8); ABS Neutrophils 4.2 10^3/uL (1.5-7.6); Eosinophil % 1.7 %; Hematocrit 30.2 % (38-53); Hemoglobin 10.4 g/dL (13.2-16.3); Lymphocyte % 17.6 %; Mean Corpuscular Hemoglobin 36.6 pg (27-33); Mean Corpuscular Hgb Conc 34.4 g/dL (31-36); Mean Platelet Volume 6.9 fL (7.5-11.2); Platelet Count 221 10^3/uL (150-450); Red Blood Count 2.84 10^6/uL (4.06-5.63); White Blood Count 6.4 10^3/uL (3.6-10.2)
[2024-01-23 06:22] LABS: Mean Corpuscular Volume 106.5 fL (80-97)
[2024-01-23 06:36] LABS: Calcium 7.5 mg/dL (8.6-10.3); Creatinine, Serum 1.39 mg/dL (0.67-1.17); Magnesium 2.5 mg/dL (1.9-2.7); eGFR CKD-EPI 55.6 (>60)
[2024-01-23 12:48] LABS: Urine Appearance Clear; Urine Bilirubin Negative (Negative); Urine Blood Trace (Negative); Urine Color Light-Yellow; Urine Glucose Negative (Negative); Urine Ketones Negative (Negative); Urine Nitrite Negative (Negative); Urine Protein Trace (Negative); Urine Specific Gravity 1.008 (1.002-1.030); Urine Urobilinogen Negative (Negative); Urine pH 5.5 (5.0-8.0)
[2024-01-23 12:56] LABS: Urine Bacteria 1+ /HPF (Absent); Urine Red Blood Cell 1+(3-5/hpf) /HPF (0-Trace); Urine White Blood Cell 1+(6-10/hpf) /HPF (0-Trace)
[2024-01-23] MEDS: Magnesium Hydroxide LIQ 30 ML UDC PO SCH (20:11)
[2024-01-24 08:22] LABS: ABS Eosinophils 0.1 10^3/uL (0.0-0.5); ABS Lymphocytes 1.1 10^3/uL (1.0-4.8); Eosinophil % 1.8 %; Hemoglobin 10.7 g/dL (13.2-16.3); Lymphocyte % 15.4 %; Mean Corpuscular Hemoglobin 36.3 pg (27-33); Mean Corpuscular Hgb Conc 34.4 g/dL (31-36); Mean Corpuscular Volume 105.5 fL (80-97); Mean Platelet Volume 6.9 fL (7.5-11.2); Platelet Count 250 10^3/uL (150-450); Red Blood Count 2.94 10^6/uL (4.06-5.63); Red Cell Distribution Width 15.7 % (12-17); White Blood Count 7.2 10^3/uL (3.6-10.2)
[2024-01-24 08:50] LABS: Calcium 7.9 mg/dL (8.6-10.3); Creatinine, Serum 1.02 mg/dL (0.67-1.17); Potassium 4.5 mmol/L (3.5-5.0); eGFR CKD-EPI 80.6 (>60)
[2024-01-24] MEDS: Cholecalciferol (VIT D3) 1,000 unit TAB PO SCH (08:57)
[2024-01-24 10:30] VITALS: BP 144/76
== END 2024-01-24 13:30 | disposition home health service (06) | DRG 872 ==
LOC: ED 07:59 → EDHOLD 19:23 → SUATTDRO 19:23 → MEDTELE 22:26
PROVIDERS: ADMIT Internal Medicine; ATTEND Internal Medicine

== ENCOUNTER 2024-03-27 12:34 | Observation (INO) ==
[2024-03-27] MEDS: Lactated Ringers 1000 ml BAG 1,000 ML IV ONE (13:30)
[2024-03-27 14:05] LABS: ABS Basophils 0.1 10^3/uL (0.0-0.1); ABS Eosinophils 0.1 10^3/uL (0.0-0.5); ABS Lymphocytes 1.5 10^3/uL (1.0-4.8); Eosinophil % 1.7 %; Hemoglobin 14.5 g/dL (13.2-16.3); Lymphocyte % 20.1 %; Mean Corpuscular Hemoglobin 35.9 pg (27-33); Mean Corpuscular Hgb Conc 33.8 g/dL (31-36); Nucleated Red Blood Cells % 0.1 %/100WBC (0.0-0.8); Platelet Count 277 10^3/uL (150-450); Red Blood Count 4.05 10^6/uL (4.06-5.63); Red Cell Distribution Width 14.5 % (12-17); White Blood Count 7.7 10^3/uL (3.6-10.2)
[2024-03-27 14:22] LABS: Albumin 3.6 g/dL (3.2-5.2); Albumin/Globulin Ratio 1.6 (1-3); Calcium 8.5 mg/dL (8.6-10.3); Creatinine, Serum 0.74 mg/dL (0.67-1.17); Globulin 2.2 g/dL (2-4); Magnesium 1.8 mg/dL (1.9-2.7); Phosphorus 2.5 mg/dL (2.5-5.0); Potassium 3.4 mmol/L (3.5-5.0); Total Bilirubin 0.3 mg/dL (0.2-1.0); Total Protein 5.8 g/dL (6.4-8.9); eGFR CKD-EPI 99.3 (>60)
[2024-03-27 14:25] LABS: Urine Appearance Turbid; Urine Bilirubin Negative (Negative); Urine Blood Negative (Negative); Urine Color Light-Yellow; Urine Glucose Negative (Negative); Urine Ketones Negative (Negative); Urine Nitrite 2+ (Negative); Urine Protein Negative (Negative); Urine Specific Gravity 1.004 (1.002-1.030); Urine Urobilinogen Negative (Negative)
[2024-03-27 14:35] LABS: Urine Bacteria 1+ /HPF (Absent); Urine Red Blood Cell 3+(>10/hpf) /HPF (0-Trace); Urine White Blood Cell 3+(>20/hpf) /HPF (0-Trace)
[2024-03-27] MEDS ORDERED: Lorazepam PYXIS KEY PRN (16:39)
[2024-03-27] MEDS: cefTRIAXone 1 gm/50 mL D5W 1 GM/50 ML BAG IV ONE (16:48)
[2024-03-27] MEDS ORDERED: Ondansetron 4 mg VIAL 2 MG/ML 2 ml VIAL IV PRN (16:55)
[2024-03-27] MEDS ORDERED: Calcium Carb (TUMS) 500 mg CHEW TAB PO PRN (16:57)
[2024-03-27] MEDS ORDERED: Nicotine Lozenge mini 4 MG LOZNG.MINI MT PRN (16:59)
[2024-03-27] MEDS ORDERED: Albuterol HFA INHALER 8 gm MDI INH PRN (16:59)
[2024-03-27] MEDS ORDERED: Senna/Docusate 8.6/50 mg (NF) TAB PO PRN (16:59)
[2024-03-27 17:13] LABS: C Reactive Protein 1.26 mg/L (<8.01)
[2024-03-27] MEDS: LORazepam 2 MG/ML 1 mL Syringe IV ONE (17:35)
[2024-03-27 19:26] LABS: High Sensitivity Troponin 1 Hr 4 pg/mL (<20)
[2024-03-27] MEDS ORDERED: Senna TAB 8.6 mg TAB PO PRN (20:31)
[2024-03-27] MEDS ORDERED: Docusate LIQ 100 MG/10 ML UDC PO PRN (20:31)
[2024-03-27] MEDS: Thiamine 100 MG/ML 2 ml VIAL 100 MG, Folic Acid IV 1 MG, Multiple Vitamin IV ADULT 10 M... IV ONE (20:42)
[2024-03-27] MEDS: Mometasone/Formoter 200/5 MDI INH SCH (21:21)
[2024-03-27] MEDS: LORazepam 2 mg VIAL 1 ml IV PUSH ONE (21:57)
[2024-03-27] MEDS: Enoxaparin 40 MG/0.4 ML SYR SUBCUT SCH (22:50)
[2024-03-28] MEDS: Nicotine PATCH 21 MG/24 HR PATCH TRANSDERM SCH (00:38)
[2024-03-28 06:34] LABS: Calcium 7.8 mg/dL (8.6-10.3); Creatinine, Serum 0.77 mg/dL (0.67-1.17); Potassium 3.4 mmol/L (3.5-5.0); eGFR CKD-EPI 98.1 (>60)
[2024-03-28 06:39] LABS: ABS Basophils 0.1 10^3/uL (0.0-0.1); ABS Eosinophils 0.1 10^3/uL (0.0-0.5); ABS Lymphocytes 1.2 10^3/uL (1.0-4.8); ABS Monocytes 0.9 10^3/uL (0.0-1.1); ABS Neutrophils 4.9 10^3/uL (1.5-7.6); ABS Nucleated RBC 0.01 10^3/ul; Hematocrit 38.2 % (38-53); Hemoglobin 13.1 g/dL (13.2-16.3); Lymphocyte % 16.7 %; Mean Corpuscular Hemoglobin 36.6 pg (27-33); Mean Corpuscular Hgb Conc 34.4 g/dL (31-36); Mean Corpuscular Volume 106.4 fL (80-97); Nucleated Red Blood Cells % 0.1 %/100WBC (0.0-0.8); Platelet Count 243 10^3/uL (150-450); Red Blood Count 3.59 10^6/uL (4.06-5.63); Red Cell Distribution Width 14.6 % (12-17); White Blood Count 7.3 10^3/uL (3.6-10.2)
[2024-03-28] MEDS: SPIRIVA Respimat (tiotropium) 2.5 mcg/inh Inhaler INH SCH (07:15)
[2024-03-28] MEDS: Cholecalciferol (VIT D3) 1,000 unit TAB PO SCH (09:42)
[2024-03-28] MEDS: Aspirin EC 81 mg TAB.EC (enteric coated) PO SCH (09:43)
[2024-03-28] MEDS: Multivitamins/Minerals TAB PO SCH (09:43)
[2024-03-28] MEDS: Potassium Chlor 20 meq TAB.ER PO ONE (16:00)
[2024-03-28 16:07] VITALS: BP 165/104
[2024-03-28] MEDS: COVID VAC 23-24(12+)(Moderna) SYR 0.5 ML IM ONE (16:11)
[2024-03-28] MEDS: PTO: Albuterol HFA INHALER 8 gm MDI INH PRN (16:20)
[2024-03-28] MEDS: Sulfamethox/Trimethoprim DS TAB 800/160 mg PO ONE (16:34)
[2024-03-28] MEDS ORDERED: Nicotine PATCH 21 MG/24 HR PATCH TRANSDERM SCH (21:00)
== END 2024-03-28 17:37 | disposition home or self-care (01) ==
LOC: EDHOLD 12:34 → ED 12:34 → SSU 18:30
PROVIDERS: ADMIT Student in an Organized Health Care Education/Training Program; ATTEND Student in an Organized Health Care Education/Training Program

== ENCOUNTER 2024-08-08 15:37 | Inpatient (IN) ==
[2024-08-08] MEDS: Acetaminophen IV 1 GM/100ML 1,000 MG/100 ML BAG IV ONE (16:14)
[2024-08-08] MEDS: Lactated Ringers 1000 ml BAG 1,000 ML IV ONE (16:15)
[2024-08-08 16:52] LABS: Urine Appearance Turbid; Urine Bilirubin Negative (Negative); Urine Blood Trace (Negative); Urine Color Colorless; Urine Glucose Negative (Negative); Urine Ketones Negative (Negative); Urine Nitrite Negative (Negative); Urine Protein Negative (Negative); Urine Specific Gravity 1.008 (1.002-1.030); Urine Urobilinogen Negative (Negative); Urine pH 5.5 (5.0-8.0)
[2024-08-08 17:01] LABS: Urine Bacteria 3+ /HPF (Absent); Urine Red Blood Cell 2+(6-10/hpf) /HPF (0-Trace); Urine White Blood Cell 3+(>20/hpf) /HPF (0-Trace)
[2024-08-08 17:11] LABS: ABS Eosinophils 0.3 10^3/uL (0.0-0.5); ABS Lymphocytes 1.5 10^3/uL (1.0-4.8); ABS Monocytes 0.7 10^3/uL (0.0-1.1); ABS Neutrophils 4.6 10^3/uL (1.5-7.6); Eosinophil % 3.7 %; Hematocrit 37.3 % (38-53); Hemoglobin 12.5 g/dL (13.2-16.3); Lymphocyte % 21.5 %; Mean Corpuscular Hemoglobin 33.6 pg (27-33); Mean Corpuscular Hgb Conc 33.5 g/dL (31-36); Mean Corpuscular Volume 100.2 fL (80-97); Mean Platelet Volume 7.3 fL (7.5-11.2); Platelet Count 256 10^3/uL (150-450); Red Blood Count 3.73 10^6/uL (4.06-5.63); Red Cell Distribution Width 14.7 % (12-17); White Blood Count 7.2 10^3/uL (3.6-10.2)
[2024-08-08 17:18] LABS: Albumin 3.6 g/dL (3.2-5.2); Albumin/Globulin Ratio 1.5 (1-3); C Reactive Protein 4.03 mg/L (<8.01); Calcium 8.3 mg/dL (8.6-10.3); Creatinine, Serum 0.96 mg/dL (0.67-1.17); Globulin 2.4 g/dL (2-4); Potassium 4.3 mmol/L (3.5-5.0); Total Bilirubin 0.3 mg/dL (0.2-1.0); eGFR CKD-EPI 86.1 (>60)
[2024-08-08 17:19] LABS: Urine Benzodiazepine Screen None Detected (None Detect); Urine Cannabinoids Screen None Detected (None Detect); Urine Opiates Screen None Detected (None Detect)
[2024-08-08 18:19] LABS: High Sensitivity Troponin 1 Hr 4 pg/mL (<20)
[2024-08-08] MEDS: cefTRIAXone 2 gm/50 mL D5W 2 GM/50 ML BAG IV ONE (18:42)
[2024-08-08] MEDS: Albuterol HFA INHALER 8 gm MDI INH ONE (18:46)
[2024-08-08] MEDS ORDERED: Thiamine 100 MG/ML 2 ml VIAL (200 mg) IV ONE (19:21)
[2024-08-08] MEDS ORDERED: Albuterol HFA INHALER 8 gm MDI INH PRN (19:22)
[2024-08-08] MEDS ORDERED: Senna/Docusate 8.6/50 mg (NF) TAB PO PRN (19:22)
[2024-08-08 20:10] LABS: Urine Osmo 196 mOsm/kg (150-1150)
[2024-08-08 20:12] LABS: Osmolality Serum 315 mOsm/kg (275-295)
[2024-08-08] MEDS: Enoxaparin 40 MG/0.4 ML SYR SUBCUT SCH (20:12)
[2024-08-08] MEDS: Morphine 2 MG/ML SYRINGE IV ONE (20:12)
[2024-08-08] MEDS ORDERED: Docusate LIQ 100 MG/10 ML UDC PO PRN (20:37)
[2024-08-08] MEDS ORDERED: Senna TAB 8.6 mg TAB PO PRN (20:37)
[2024-08-08] MEDS: Thiamine IV 100 MG in NS 0.9% 50 ML Q24H IV ONE (20:59)
[2024-08-08] MEDS: Nicotine PATCH 21 MG/24 HR PATCH TRANSDERM SCH (22:28)
[2024-08-08] MEDS: Mometasone/Formoter 200/5 MDI INH SCH (22:33)
[2024-08-09 06:05] LABS: Hematocrit 37.6 % (38-53); Hemoglobin 12.9 g/dL (13.2-16.3); Mean Corpuscular Hemoglobin 34.3 pg (27-33); Mean Corpuscular Hgb Conc 34.2 g/dL (31-36); Mean Corpuscular Volume 100.2 fL (80-97); Mean Platelet Volume 7.7 fL (7.5-11.2); Platelet Count 260 10^3/uL (150-450); Red Blood Count 3.76 10^6/uL (4.06-5.63); White Blood Count 8.9 10^3/uL (3.6-10.2)
[2024-08-09 06:57] LABS: Calcium 8.4 mg/dL (8.6-10.3); Creatinine, Serum 0.96 mg/dL (0.67-1.17); Magnesium 1.8 mg/dL (1.9-2.7); Potassium 4.2 mmol/L (3.5-5.0); eGFR CKD-EPI 86.1 (>60)
[2024-08-09] MEDS ORDERED: Nicotine PATCH 21 MG/24 HR PATCH TRANSDERM SCH (08:00)
[2024-08-09] MEDS: Magnesium Sulfate 2 gm BAG 2 GM/50 ML BAG IVPB ONE (08:12)
[2024-08-09] MEDS: Lidocaine PATCH 5% PATCH TRANSDERM SCH (08:13)
[2024-08-09] MEDS: Aspirin EC 81 mg TAB.EC (enteric coated) PO SCH (08:14)
[2024-08-09] MEDS: Multivitamins/Minerals TAB PO SCH (08:14)
[2024-08-09] MEDS: Cholecalciferol (VIT D3) 1,000 unit TAB PO SCH (08:14)
[2024-08-09] MEDS: SPIRIVA Respimat (tiotropium) 2.5 mcg/inh Inhaler INH SCH (08:42)
[2024-08-09] MEDS ORDERED: Nicotine PATCH 14 MG/24 HR PATCH TRANSDERM SCH (14:00)
[2024-08-09] MEDS: Nicotine PATCH 21 MG/24 HR PATCH TRANSDERM SCH (15:00)
[2024-08-09] MEDS: cefTRIAXone 1 gm/50 mL D5W 1 GM/50 ML BAG IV SCH (16:52)
[2024-08-09 17:45] VITALS: BP 141/76
[2024-08-09] MEDS: COVID VAC 24-25 (12+) (Moderna) Syringe 0.5 mL IM ONE (18:18)
[2024-08-10] MEDS ORDERED: Nicotine PATCH 21 MG/24 HR PATCH TRANSDERM SCH (08:00)
== END 2024-08-09 18:30 | disposition home or self-care (01) | DRG 698 ==
LOC: ED 15:37 → EDHOLD 15:37 → OBSVTOIN 18:57 → SUATTDRO 18:57 → MEDTELE 21:13
PROVIDERS: ADMIT Internal Medicine; ATTEND Family Medicine

== ENCOUNTER 2024-11-09 23:38 | Inpatient (IN) ==
[2024-11-09] MEDS ORDERED: Albuterol/Ipratropium NEB.SOL (2.5/0.5 MG) 3 ML NEB.SOLN ONE (23:42)
[2024-11-09] MEDS: Albuterol/Ipratropium NEB.SOL (2.5/0.5 MG) 3 ML NEB.SOLN INH ONE (23:48)
[2024-11-10] MEDS: oxyCODONE SR 10 mg TAB PO ONE
[2024-11-10 00:12] LABS: ABS Eosinophils 0.1 10^3/uL (0.0-0.5); ABS Lymphocytes 0.1 10^3/uL (1.0-4.8); ABS Monocytes 0.3 10^3/uL (0.0-1.1); ABS Neutrophils 13.3 10^3/uL (1.5-7.6); ABS Nucleated RBC 0.01 10^3/ul; Eosinophil % 0.4 %; Hematocrit 47.5 % (38-53); Lymphocyte % 1.1 %; Mean Corpuscular Hgb Conc 33.6 g/dL (31-36); Mean Corpuscular Volume 98.2 fL (80-97); Mean Platelet Volume 7.4 fL (7.5-11.2); Platelet Count 233 10^3/uL (150-450); Red Blood Count 4.84 10^6/uL (4.06-5.63); Red Cell Distribution Width 14.4 % (12-17); White Blood Count 13.7 10^3/uL (3.6-10.2)
[2024-11-10 00:14] LABS: INR 0.99 (0.85-1.14)
[2024-11-10] MEDS: Nicotine PATCH 21 MG/24 HR PATCH TRANSDERM ONE (00:18)
[2024-11-10 00:42] LABS: PCO2 Arterial 33 mmHg (35-45); PO2 Arterial 74 mmHg (80-100)
[2024-11-10] MEDS: methylPREDNISolone SOD SUCC 125 mg 2 ML VIAL IV ONE (00:44)
[2024-11-10 00:54] LABS: Albumin 4.1 g/dL (3.5-5.7); Albumin/Globulin Ratio 1.6 (1-3); Calcium 8.7 mg/dL (8.6-10.3); Creatinine, Serum 0.81 mg/dL (0.67-1.17); Globulin 2.5 g/dL (2-4); Magnesium 1.4 mg/dL (1.9-2.7); Potassium 3.8 mmol/L (3.5-5.0); Total Bilirubin 0.6 mg/dL (0.2-1.0); Total Protein 6.6 g/dL (6.4-8.9)
[2024-11-10] MEDS: cefTRIAXone 1 gm/50 mL D5W 1 GM/50 ML BAG IV SCH (00:54)
[2024-11-10] MEDS: Azithromycin 500 mg/250 ml NS 500 MG/250 ML BAG IVPB SCH (01:21)
[2024-11-10 01:22] LABS: High Sensitivity Troponin 1 Hr 89 pg/mL (<20)
[2024-11-10] MEDS: Iohexol 350 (CONTRAST) 500 ML MDV IV ONE (02:34)
[2024-11-10] MEDS ORDERED: Morphine 4 MG/ML VIAL (1 ml) IV PRN (02:36)
[2024-11-10] MEDS: NS 0.9% 1000 ml BAG 1,000 ML IV ONE (02:51)
[2024-11-10] MEDS: HYDROmorphone 1 MG/1 ML SYRINGE IV SLOW PU PRN (03:16)
[2024-11-10] MEDS: Lidocaine PATCH 5% PATCH TRANSDERM SCH (03:36)
[2024-11-10] MEDS ORDERED: Albuterol/Ipratropium NEB.SOL (2.5/0.5 MG) 3 ML NEB.SOLN INH PRN (04:26)
[2024-11-10] MEDS: Albuterol/Ipratropium NEB.SOL (2.5/0.5 MG) 3 ML NEB.SOLN INH SCH (04:45)
[2024-11-10] MEDS: Magnesium Sulf 4 GM/100 ML IV 4,000 MG/100 ML BAG IVPB ONE (05:29)
[2024-11-10] MEDS: Enoxaparin 40 MG/0.4 ML SYR SUBCUT SCH (05:30)
[2024-11-10 05:32] LABS: Hematocrit 43.5 % (38-53); Hemoglobin 14.7 g/dL (13.2-16.3); Mean Corpuscular Hemoglobin 33.1 pg (27-33); Mean Corpuscular Hgb Conc 33.8 g/dL (31-36); Mean Platelet Volume 7.9 fL (7.5-11.2); Platelet Count 214 10^3/uL (150-450); Red Blood Count 4.44 10^6/uL (4.06-5.63); Red Cell Distribution Width 14.3 % (12-17); White Blood Count 21.4 10^3/uL (3.6-10.2)
[2024-11-10 06:05] LABS: Albumin 3.8 g/dL (3.5-5.7); Albumin/Globulin Ratio 1.5 (1-3); Calcium 8.3 mg/dL (8.6-10.3); Creatinine, Serum 0.92 mg/dL (0.67-1.17); Globulin 2.5 g/dL (2-4); Magnesium 1.4 mg/dL (1.9-2.7); Total Bilirubin 0.7 mg/dL (0.2-1.0); Total Protein 6.3 g/dL (6.4-8.9); eGFR CKD-EPI 90.6 (>60)
[2024-11-10 06:18] LABS: TSH Ultra Thyroid Stim Horm 0.53 mcIU/mL (0.34-5.60)
[2024-11-10 06:59] LABS: ABS Basophils 0.1 10^3/uL (0.0-0.1); ABS Lymphocytes 0.1 10^3/uL (1.0-4.8); ABS Monocytes 0.2 10^3/uL (0.0-1.1); ABS Neutrophils 21.1 10^3/uL (1.5-7.6); Lymphocyte % 0.6 %
[2024-11-10] MEDS: Multivitamins/Minerals TAB PO SCH (08:07)
[2024-11-10] MEDS: Nicotine Lozenge mini 4 MG LOZNG.MINI MT PRN (08:07)
[2024-11-10] MEDS: methylPREDNISolone SOD SUCC 40 mg/ml 1 ml VIAL IV SCH (08:08)
[2024-11-10 09:39] LABS: High Sensitivity Troponin 3 Hr 426 pg/mL (<20)
[2024-11-10] MEDS: Nicotine PATCH 21 MG/24 HR PATCH TRANSDERM SCH (11:27)
[2024-11-10 13:05] LABS: High Sensitivity Troponin 3 Hr 495 pg/mL (<20)
[2024-11-10 15:14] LABS: High Sensitivity Troponin 3 Hr 455 pg/mL (<20)
[2024-11-11] MEDS ORDERED: Nicotine PATCH 21 MG/24 HR PATCH TRANSDERM SCH
[2024-11-11] MEDS: Albuterol 2.5mg/3 ml (0.083%) NEB.SOLN INH PRN (00:10)
[2024-11-11] MEDS: Albuterol/Ipratropium NEB.SOL (2.5/0.5 MG) 3 ML NEB.SOLN INH SCH (05:20)
[2024-11-11 06:02] LABS: Hematocrit 37.8 % (38-53); Hemoglobin 12.6 g/dL (13.2-16.3); Mean Corpuscular Hemoglobin 32.7 pg (27-33); Mean Corpuscular Hgb Conc 33.3 g/dL (31-36); Mean Corpuscular Volume 98.4 fL (80-97); Platelet Count 203 10^3/uL (150-450); Red Blood Count 3.84 10^6/uL (4.06-5.63); Red Cell Distribution Width 14.6 % (12-17); White Blood Count 21.4 10^3/uL (3.6-10.2)
[2024-11-11 06:39] LABS: Albumin 3.5 g/dL (3.5-5.7); Albumin/Globulin Ratio 1.5 (1-3); Calcium 8.3 mg/dL (8.6-10.3); Creatinine, Serum 0.86 mg/dL (0.67-1.17); Globulin 2.3 g/dL (2-4); Magnesium 2.2 mg/dL (1.9-2.7); Potassium 4.7 mmol/L (3.5-5.0); Total Bilirubin 0.2 mg/dL (0.2-1.0); Total Protein 5.8 g/dL (6.4-8.9); eGFR CKD-EPI 94.3 (>60)
[2024-11-11 07:27] LABS: ABS Lymphocytes 0.3 10^3/uL (1.0-4.8); ABS Monocytes 0.4 10^3/uL (0.0-1.1); ABS Neutrophils 20.6 10^3/uL (1.5-7.6); ABS Nucleated RBC 0.02 10^3/ul; Eosinophil % 0.1 %; Lymphocyte % 1.6 %; Nucleated Red Blood Cells % 0.1 %/100WBC (0.0-0.8)
[2024-11-11] MEDS: Sulfur Hexaflouride MICROSPHR 25 MG VIAL IV PRN (09:33)
[2024-11-11] MEDS ORDERED: Magnesium Hydroxide LIQ 30 ML UDC PO PRN (10:17)
[2024-11-11] MEDS ORDERED: Senna TAB 8.6 mg TAB PO PRN (10:17)
[2024-11-11] MEDS: Polyethylene Glycol 3350 17 GM PACKET PO PRN (14:51)
[2024-11-11] MEDS ORDERED: HYDROmorphone 1 MG/1 ML SYRINGE IV SLOW PU PRN (15:26)
[2024-11-11] MEDS: Thiamine 100 MG/ML 2 ml VIAL (200 mg) IM ONE (15:41)
[2024-11-11] MEDS: Magnesium Hydroxide LIQ 30 ML UDC PO SCH (20:06)
[2024-11-11] MEDS: HYDROcodone/ACETAMIN 5/325 mg TAB PO PRN (20:06)
[2024-11-11] MEDS: Haloperidol 5 mg/ml SDV IV/IM 5 MG/ML AMP IV SLOW PU PRN (21:19)
[2024-11-12] MEDS: Multivitamins/Minerals TAB PO SCH (09:10)
[2024-11-12] MEDS ORDERED: LORazepam 2 mg VIAL 1 ml IV PUSH SCH (10:00)
[2024-11-12] MEDS ORDERED: Lorazepam PYXIS KEY PRN (12:33)
[2024-11-12] MEDS: HYDROmorphone 0.5 MG/0.5 ML SYRINGE IV SLOW PU PRN (17:11)
[2024-11-12 17:16] LABS: Urine Appearance No Cx Clear (Clear); Urine Bilirubin No Culture Negative (Negative); Urine Blood No Culture Trace (Negative); Urine Color No Culture Colorless; Urine Glucose No Culture Negative (Negative); Urine Ketones No Culture Negative (Negative); Urine Leukocytes No Culture 75 (1+) Leu/uL (Negative); Urine Nitrite No Culture Negative (Negative); Urine Protein No Culture Negative (Negative); Urine Urobilinogen No Cx Negative (Negative)
[2024-11-12 17:21] LABS: Budding Yeast No Culture Present /HPF (Absent); Urine Bacteria No Culture Absent /HPF (Absent); Urine Red Blood Cell No Cult 1+(3-5/hpf) /HPF (0-Trace); Urine White Blood Cell No Cult 2+(11-20/hpf) /HPF (0-Trace)
[2024-11-12 18:10] LABS: ABS Eosinophils 0.7 10^3/uL (0.0-0.5); ABS Lymphocytes 1.6 10^3/uL (1.0-4.8); ABS Monocytes 0.5 10^3/uL (0.0-1.1); ABS Neutrophils 10.4 10^3/uL (1.5-7.6); Eosinophil % 5.4 %; Hematocrit 40.7 % (38-53); Hemoglobin 13.8 g/dL (13.2-16.3); Lymphocyte % 12.3 %; Mean Corpuscular Hemoglobin 33.2 pg (27-33); Mean Corpuscular Hgb Conc 33.8 g/dL (31-36); Mean Platelet Volume 7.8 fL (7.5-11.2); Platelet Count 230 10^3/uL (150-450); Red Blood Count 4.15 10^6/uL (4.06-5.63); Red Cell Distribution Width 14.7 % (12-17); White Blood Count 13.3 10^3/uL (3.6-10.2)
[2024-11-12 18:37] LABS: Albumin 3.7 g/dL (3.5-5.7); Albumin/Globulin Ratio 1.7 (1-3); Calcium 8.7 mg/dL (8.6-10.3); Creatinine, Serum 0.85 mg/dL (0.67-1.17); Globulin 2.2 g/dL (2-4); Magnesium 2.1 mg/dL (1.9-2.7); Potassium 4.5 mmol/L (3.5-5.0); Total Bilirubin 0.5 mg/dL (0.2-1.0); Total Protein 5.9 g/dL (6.4-8.9); eGFR CKD-EPI 94.6 (>60)
[2024-11-12] MEDS: HYDROcodone/ACETAMIN 5/325 mg TAB PO PRN (20:48)
[2024-11-12] MEDS: Lidocaine PATCH 5% PATCH TRANSDERM SCH (22:17)
[2024-11-12] MEDS: LORazepam 2 mg VIAL 1 ml IV PUSH PRN (22:23)
[2024-11-13 05:43] LABS: ABS Eosinophils 0.8 10^3/uL (0.0-0.5); ABS Monocytes 0.6 10^3/uL (0.0-1.1); ABS Neutrophils 6.3 10^3/uL (1.5-7.6); Eosinophil % 7.8 %; Hematocrit 39.3 % (38-53); Hemoglobin 13.4 g/dL (13.2-16.3); Lymphocyte % 20.5 %; Mean Corpuscular Hemoglobin 33.5 pg (27-33); Mean Corpuscular Hgb Conc 34.1 g/dL (31-36); Mean Corpuscular Volume 98.3 fL (80-97); Mean Platelet Volume 8.2 fL (7.5-11.2); Platelet Count 223 10^3/uL (150-450); White Blood Count 9.8 10^3/uL (3.6-10.2)
[2024-11-13 06:04] LABS: Albumin 3.2 g/dL (3.5-5.7); Albumin/Globulin Ratio 1.5 (1-3); Creatinine, Serum 0.89 mg/dL (0.67-1.17); Globulin 2.2 g/dL (2-4); Total Bilirubin 0.3 mg/dL (0.2-1.0); Total Protein 5.4 g/dL (6.4-8.9); eGFR CKD-EPI 93.3 (>60)
[2024-11-13] MEDS: HYDROcodone/ACETAMIN 5/325 mg TAB PO PRN ×2 (10:42→13:00)
[2024-11-14 09:17] VITALS: BP 156/82
== END 2024-11-14 15:10 | disposition home health service (06) | DRG 871 ==
LOC: ED 23:38 → SUATTDRO 11-10 00:43 → EDHOLD 11-10 00:43 → ICU 11-10 01:00 → MEDTELE 11-10 20:33
PROVIDERS: ADMIT Student in an Organized Health Care Education/Training Program; ATTEND Student in an Organized Health Care Education/Training Program